=== PATIENT | female | born 1985 | race Two or more races ===

== ENCOUNTER 2019-09-29 08:45 | Emergency (ER) | payer OTHER ==
[2019-09-29 08:52] VITALS: TEMP 98.3
[2019-09-29] MEDS ORDERED: SODIUM CHLORIDE 0.9% 1,000 ML IV STA (09:10)
[2019-09-29 09:27] LABS: Basophils % (A) 0 %; Eosinophils # (A) 0.1 k/uL (0-0.7); Eosinophils % (A) 3 %; HCT 34.9 % (34.0-46.0); HGB 12.1 gm/dL (11.4-16.0); Lymphocytes # (A) 1.1 k/uL (1.0-4.8); Lymphocytes % (A) 27 %; MCH 31.8 pg (25.0-35.0); MCHC 34.6 g/dL (31.0-37.0); MCV 91.9 fL (80.0-100.0); Mean Platelet Volume 9.5; Monocytes # (A) 0.2 k/uL (0-1.0); Monocytes % (A) 5 %; Neutrophils # (A) 2.7 k/uL (1.3-7.7); Neutrophils % (A) 64 %; Platelet Count 157 k/uL (150-450); RDW 14.4 % (11.5-15.5); WBC 4.2 k/uL (3.8-10.6)
--- NOTE | 2019-09-29 09:29 | ED ---
Abdominal Pain HPI - General Chief Complaint: Abdominal Pain Stated Complaint: Abd pain-16wks PG Time Seen by Provider: 09/29/19 09:04 Source: patient, RN notes reviewed Mode of arrival: ambulatory Limitations: no limitations - History of Present Illness Initial Comments: 34-year-old female presents emergency Department with chief complaint right- sided right flank pain last 3 weeks. Patient is 16 weeks . States that the pain seems to wax and wane she doesn't that she's been constipated denies any dysuria hematuria patient is A1. Patient has no vaginal bleeding or vaginal discharge. - Related Data Home Medications Medication Instructions Recorded Confirmed Ondansetron Odt [Zofran Odt] 4 mg PO Q8HR PRN 09/29/19 09/29/19 Previous Rx's Medication Instructions Recorded Docusate [Colace] 100 mg PO DAILY #10 capsule 09/29/19 Allergies Allergy/AdvReac Type Severity Reaction Status Date / Time No Known Allergies Allergy Verified 09/29/19 10:15 Review of Systems ROS Statement: Those systems with pertinent positive or pertinent negative responses have been documented in the HPI. ROS Other: All systems not noted in ROS Statement are negative. Past Medical History Past Medical History: No Reported History History of Any Multi-Drug Resistant Organisms: None Reported Past Surgical History: No Surgical Hx Reported Past Psychological History: No Psychological Hx Reported Smoking Status: Never smoker Past Alcohol Use History: None Reported Past Drug Use History: None Reported General Exam Limitations: no limitations General appearance: alert, in no apparent distress Head exam: Present: atraumatic, normocephalic, normal inspection Eye exam: Present: normal appearance, PERRL, EOMI. Absent: scleral icterus, conjunctival injection, periorbital swelling Respiratory exam: Present: normal lung sounds bilaterally. Absent: respiratory distress, wheezes, rales, rhonchi, stridor Cardiovascular Exam: Present: regular rate, normal rhythm, normal heart sounds. Absent: systolic murmur, diastolic murmur, rubs, gallop, clicks GI/Abdominal exam: Present: soft, tenderness (Mild right-sided), normal bowel sounds. Absent: distended, guarding, rebound, rigid Back exam: Absent: CVA tenderness (R), CVA tenderness (L) Neurological exam: Present: alert Skin exam: Present: warm, dry, intact, normal color. Absent: rash Course Vital Signs 09/29/19 08:49 Temperature 98.3 F Pulse Rate 103 H Respiratory 19 Rate Blood Pressure 106/66 O2 Sat by Pulse 99 Oximetry Medical Decision Making - Medical Decision Making 34-year-old female presented for right-sided abdominal pain. Labs unremarkable urinalysis unremarkable. THE GALLBLADDER DID NOT REVEAL ANY ACUTE FINDING. PATIENT'S PAIN MAY RELATED TO HER CONSTIPATION. PATIENT STATES TAKES CHRONIC ZOFRAN WHICH MAKES HER MORE CONSTIPATED. PATIENT COLACE FOR HER CONSTIPATION ADVISED TO INCREASE HER FLUID INTAKE, FIBER INTAKE. - Lab Data Result diagrams: 09/29/19 09:13 09/29/19 09:13 Lab Results 09/29/19 09/29/19 09/29/19 Range/Units 09:13 09:13 09:13 WBC 4.2 (3.8-10.6) k/uL RBC 3.80 (3.80-5.40) m/uL Hgb 12.1 (11.4-16.0) gm/dL Hct 34.9 (34.0-46.0) % MCV 91.9 (80.0-100.0) fL MCH 31.8 (25.0-35.0) pg MCHC 34.6 (31.0-37.0) g/dL RDW 14.4 (11.5-15.5) % Plt Count 157 (150-450) k/uL Neutrophils % 64 % Lymphocytes % 27 % Monocytes % 5 % Eosinophils % 3 % Basophils % 0 % Neutrophils # 2.7 (1.3-7.7) k/uL Lymphocytes # 1.1 (1.0-4.8) k/uL Monocytes # 0.2 (0-1.0) k/uL Eosinophils # 0.1 (0-0.7) k/uL Basophils # 0.0 (0-0.2) k/uL Sodium 138 (137-145) mmol/L Potassium 3.8 (3.5-5.1) mmol/L Chloride 111 H (98-107) mmol/L Carbon Dioxide 19 L (22-30) mmol/L Anion Gap 8 mmol/L BUN 8 (7-17) mg/dL Creatinine 0.35 L (0.52-1.04) mg/dL Est GFR (CKD-EPI)AfAm >90 (>60 ml/min/1.73 sqM) Est GFR (CKD-EPI)NonAf >90 (>60 ml/min/1.73 sqM) Glucose 110 H (74-99) mg/dL Calcium 8.7 (8.4-10.2) mg/dL Total Bilirubin 0.4 (0.2-1.3) mg/dL AST 18 (14-36) U/L ALT 8 (4-34) U/L Alkaline Phosphatase 42 (38-126) U/L Total Protein 6.4 (6.3-8.2) g/dL Albumin 3.5 (3.5-5.0) g/dL Amylase 44 (30-110) U/L Lipase 70 (23-300) U/L Urine Color Yellow Urine Appearance Clear (Clear) Urine pH 6.0 (5.0-8.0) Ur Specific [place] 1.023 (1.001-1.035) Urine Protein Negative (Negative) Urine Glucose (UA) Negative (Negative) Urine Ketones Negative (Negative) Urine Blood Trace H (Negative) Urine Nitrite Negative (Negative) Urine Bilirubin Negative (Negative) Urine Urobilinogen <2.0 (<2.0) mg/dL Ur Leukocyte Esterase Negative (Negative) Urine RBC 2 (0-5) /hpf Urine WBC 1 (0-5) /hpf Ur Squamous Epith Cells 7 H (0-4) /hpf Urine Mucus Moderate H (None) /hpf Disposition Clinical Impression: Abdominal pain, Constipation Disposition: HOME SELF-CARE Condition: Stable Instructions (If sedation given, give patient instructions): Abdominal Pain in (ED) Additional Instructions: Please return to the Emergency Department if symptoms worsen or any other concerns. Prescriptions: Docusate [Colace] 100 mg PO DAILY #10 capsule Is patient prescribed a controlled substance at d/c from ED?: No Referrals: Pinky Grimm MD [Primary Care Provider] - 1-2 days Time of Disposition: 10:48
[2019-09-29 09:42] LABS: ALT 8 U/L (4-34); AST 18 U/L (14-36); African American GFR (CKD) >90 (>60 ml/min/1.73 sqM); Albumin 3.5 g/dL (3.5-5.0); Alkaline Phosphatase 42 U/L (38-126); Amylase 44 U/L (30-110); Anion Gap 8 mmol/L; Blood Urea Nitrogen 8 mg/dL (7-17); Calcium 8.7 mg/dL (8.4-10.2); Carbon Dioxide 19 mmol/L (22-30); Chloride 111 mmol/L (98-107); Glucose 110 mg/dL (74-99); Non-African American GFR(CKD) >90 (>60 ml/min/1.73 sqM); Potassium 3.8 mmol/L (3.5-5.1); Sodium 138 mmol/L (137-145); Total Bilirubin 0.4 mg/dL (0.2-1.3); Total Protein 6.4 g/dL (6.3-8.2)
[2019-09-29 10:16] LABS: Appearance,Urine Clear (Clear); Bilirubin,Urine Negative (Negative); Blood,Urine Trace (Negative); Color,Urine Yellow; Glucose,Urine (UA) Negative (Negative); Ketones,Urine Negative (Negative); Leukocyte Esterase,Urine Negative (Negative); Mucus,Urine Moderate /hpf; Nitrite,Urine Negative (Negative); Protein,Urine Negative (Negative); RBC,Urine 2 /hpf (0-5); Specific Gravity,Urine 1.023 (1.001-1.035); Squamous Epithelial Cell,Urine 7 /hpf (0-4); Urobilinogen,Urine <2.0 mg/dL (<2.0); WBC,Urine 1 /hpf (0-5)
--- NOTE | 2019-09-29 10:29 | US ---
EXAMINATION TYPE: US abdomen limited DATE OF EXAM: 09/29/2019 COMPARISON: NONE CLINICAL HISTORY: RUQ pain. Pain EXAM MEASUREMENTS: Liver Length: 15 cm Gallbladder Wall: .2 cm CBD: .3 cm Right Kidney: 12.0 x 3.7 x 4.8 cm Pancreas: Obscured by bowel gas Liver: wnl Gallbladder: wnl Evidence for sonographic Porras's sign: no CBD: wnl Right Kidney: wnl Pancreas suboptimally seen on images saved due to overlying bowel gas per technologist. Visualized li nava is within normal limits. Visualized right kidney shows no gross hydronephrosis. Gallbladder is se en without shadowing mobile gallstones. IMPRESSION: No gallstones or ultrasound evidence for acute cholecystitis.
[2019-09-29 11:17] VITALS: BP 125/81; PULSE 76; RESP 16
== END 2019-09-29 11:16 | disposition home or self-care (01) ==
LOC: SUPCPDRO 08:45 → EC 08:45
DX: O99.612 Diseases of the digestive system complicating pregnancy, second trimester (principal); K59.00 Constipation, unspecified; Z3A.16 16 weeks gestation of pregnancy
CPT/HCPCS: 36415; 76705; 80053; 81001; 82150; 83690; 85025; 99284

== ENCOUNTER 2020-02-21 06:12 | Inpatient (IN) | payer OTHER ==
[2020-02-21] MEDS ORDERED: OXYTOCIN 10 UNIT/ML 1 ML VIAL IM PRN (06:27)
[2020-02-21] MEDS ORDERED: METHYLERGONOVINE 0.2 MG/ML 1 ML AMP IM PRN (06:27)
[2020-02-21] MEDS ORDERED: TERBUTALINE 1 MG/ML VIAL SQ PRN (06:27)
[2020-02-21] MEDS ORDERED: CARBOPROST TROMETHAMINE 250 MCG/ML 1 ML AMP IM PRN (06:27)
[2020-02-21] MEDS ORDERED: LIDOCAINE 0.5% (PF) 5 MG/ML (50 ML SDV) SQ PRN (06:27)
[2020-02-21] MEDS ORDERED: OXYTOCIN 30 UNITS/500 ML NS 30 UNIT in SALINE 1 500ML.BAG IV SCH (06:30)
[2020-02-21] MEDS ORDERED: PENICILLIN G POTASSIUM 5,000,000 UNIT in DEXTROSE 5% IN WATER 100 ML IVPB STA ×2 (06:35)
[2020-02-21 06:52] LABS: Basophils % (A) 1 %; Eosinophils # (A) 0.1 k/uL (0-0.7); Eosinophils % (A) 3 %; HCT 33.1 % (34.0-46.0); HGB 11.1 gm/dL (11.4-16.0); Hypochromasia Slight; Lymphocytes # (A) 1.3 k/uL (1.0-4.8); Lymphocytes % (A) 32 %; MCH 29.2 pg (25.0-35.0); MCHC 33.6 g/dL (31.0-37.0); MCV 87.1 fL (80.0-100.0); Mean Platelet Volume 9.2; Monocytes # (A) 0.2 k/uL (0-1.0); Monocytes % (A) 6 %; Neutrophils # (A) 2.3 k/uL (1.3-7.7); Neutrophils % (A) 58 %; Platelet Count 154 k/uL (150-450); Poikilocytosis Slight; RDW 14.5 % (11.5-15.5); WBC 4.1 k/uL (3.8-10.6)
[2020-02-21] MEDS: LACTATED RINGERS 1,000 ML IV SCH ×4 (06:58→23:27)
[2020-02-21] MEDS ORDERED: CITRIC ACID-SODIUM CITRATE 15 ML CUP PO ONE (09:26)
[2020-02-21] MEDS ORDERED: DEXAMETHASONE SOD PHOSPHATE 10 MG/ML 1 ML VIAL ONE (10:50)
[2020-02-21] MEDS ORDERED: MORPHINE SULFATE (PF) 0.3 MG/0.3 ML SYR ONE (10:50)
[2020-02-21] MEDS ORDERED: ONDANSETRON 4 MG/2 ML VIAL ONE (10:50)
[2020-02-21] MEDS ORDERED: OXYTOCIN 10 UNIT/ML 1 ML VIAL ONE (10:50)
[2020-02-21] MEDS ORDERED: KETOROLAC 30 MG/ML 1 ML VIAL ONE (10:50)
[2020-02-21] MEDS ORDERED: PHENYLEPHRINE-0.9% NACL SYG 1 MG/10 ML SYRINGE ONE (10:50)
--- NOTE | 2020-02-21 10:59 | P.HPOB ---
History of Present Illness H&P Date: 02/21/20 Chief Complaint: Here for elective induction of labor with favorable multiparous cervix This is a 34-year-old female 4 para 3003 EDC 02/27/2020 at 39 and one sevenths weeks' gestation. Patient presented this morning for induction of labor with favorable term multiparous cervix. Fetus is been active throughout the . She denied vaginal bleeding or fluid leakage. Upon evaluation at the bedside infant was noted to be breech upon artificial rupture of mem branes, clear fluid. Decision is made to proceed with primary low transverse section. Past medical history is significant for hyperemesis in the first trimester, irritable bowel syndrome. Past surgical history is negative. Current medications Zofran 4 mg as needed, metoclopramide 10 mg once daily, vitamin daily. ALLERGIES none known. Family history is noncontributory. Obstetric history normal spontaneous vaginal deliveries 3, all full-term healthy infants. history is significant for positive group B strep cultures. Blood type is O+, rubella status immune. VDRL testing, urine culture, hepatitis B surface antigen, HIV testing, gonorrhea and chlamydia cultures all negative. One-hour Glucola 121. On exam this is a pleasant female who speaks very little Cam[place], her is at the bedside and is an excellent line construction supervisor. Blood pressure on admission 1 20/61, pulse 82, respirations 16. She is 5 foot 1 inch, 120 pounds. The general physical exam is within normal limits. The chest is clear in all haas. The extremities reveal no edema. heart rate is consistent with reactive NST. Cervix is 3 cm dilated, anterior, 70-80% effaced. On examination breech presentation is noted after artificial amniorrhexis with clear fluid. Impression: 39 and one sevenths weeks intrauterine , here for induction, found to have breech presentation. Plan: An [facility]na hospice is present remotely for full interpretation of risks and benefits. Patient has elected to proceed with primary low transverse section. She is declining option for tubal ligation. We've discussed the risk of bleeding, infection, perforation or damage to other organs especially the bladder. The option of vaginal is also reviewed along with risks and benefits. All questions answered. Review of Systems Constitutional: Reports as per HPI Past Medical History Past Medical History: No Reported History Additional Past Medical History / Comment(s): IBS History of Any Multi-Drug Resistant Organisms: None Reported Past Surgical History: No Surgical Hx Reported Past Psychological History: No Psychological Hx Reported Smoking Status: Never smoker Past Alcohol Use History: None Reported Past Drug Use History: None Reported - Past Family History Father History Unknown: Yes Medications and Allergies Home Medications Medication Instructions Recorded Confirmed Type No Known Home Medications 02/21/20 02/21/20 History Allergies Allergy/AdvReac Type Severity Reaction Status Date / Time No Known Allergies Allergy Verified 09/29/19 10:15 Exam Vital Signs Temp Pulse Resp BP Pulse Ox 02/21/20 06:26 97 F L 82 16 120/61 99 Intake and Output 02/20/20 02/21/20 02/21/20 22:59 06:59 14:59 Other: Weight 54.431 kg See dictation under HPI Results Result Diagrams: 02/21/20 06:30 Abnormal Lab Results - Last 24 Hours (Table) 02/21/20 Range/Units 06:30 Hgb 11.1 L (11.4-16.0) gm/dL Hct 33.1 L (34.0-46.0) % Assessment and Plan Assessment: 39 and one sevenths weeks intrauterine , breech presentation. Plan: We will proceed with primary low transverse section, tubal ligation offered and declined. All risks and benefits thoroughly reviewed. It is my strong impression that the patient is very well aware of our discussion with the aid of cna hospice and her at the bedside. Time with Patient: Greater than 30
[2020-02-21] MEDS ORDERED: ZOLPIDEM 5 MG TAB PO PRN (11:35)
[2020-02-21] MEDS ORDERED: NALOXONE 0.4 MG/ML 1 ML VIAL IV PRN (11:35)
[2020-02-21] MEDS ORDERED: KETOROLAC 30 MG/ML 1 ML VIAL IVP PRN (11:35)
[2020-02-21] MEDS ORDERED: diphenhydrAMINE 25 MG CAP PO PRN (11:35)
[2020-02-21] MEDS ORDERED: diphenhydrAMINE 50 MG CAP PO PRN (11:35)
[2020-02-21] MEDS ORDERED: diphenhydrAMINE 50 MG/ML 1 ML VIAL IVP PRN (11:35)
[2020-02-21] MEDS ORDERED: METOCLOPRAMIDE 5 MG/ML 2 ML VIAL IVP PRN (11:35)
[2020-02-21] MEDS ORDERED: ACETAMINOPHEN TAB 325 MG TAB PO PRN (11:35)
[2020-02-21] MEDS ORDERED: SIMETHICONE 80 MG CHEWABLE PO PRN (11:35)
[2020-02-21] MEDS ORDERED: ONDANSETRON 4 MG/2 ML VIAL IVP PRN (11:35)
--- NOTE | 2020-02-21 11:35 | P.OP ---
Date of Procedure: 02/21/20 Preoperative Diagnosis: 39 and one sevenths weeks intrauterine , breech presentation. Postoperative Diagnosis: Same, double footling breech, liveborn female , normal-appearing tubes and ovaries. Procedure(s) Performed: Primary low transverse section Anesthesia: spinal Surgeon: Clementina Bee Ehs Engineer #1: Epi Muniz Estimated Blood Loss (ml): 250 IV fluids (ml): 700 Urine output (ml): 100 Pathology: none sent Condition: stable Disposition: PACU Description of Procedure: Breech presentation is noted the bedside. After thorough consultation along with a director of accounting, decision is made to proceed with primary low transverse section. All risks and benefits reviewed. Penicillin G is given 1 group B strep treatment, 2 g of Ancef are given as well. Patient is brought back to the operating suite where a spinal with Duramorph is administered without difficulty per Dr. Stewart. She's placed in the dorsal supine position with left lateral uterine displacement. The appropriate timeout is performed to assure proper patient and procedural identification. Patient is declining option for tubal ligation. The analgesia is checked and noted to be adequate. The abdomen is prepped and draped in usual sterile fashion. A low transverse skin incision is made in this is carried down to the subcutaneous tissue which is only approximately 1 cm deep. Fascia is isolated, scored, extended bilaterally with curved Brunner scissors. Peritoneum is next identified and incised, there is no bowel or bladder involvement. Bladder blade is placed over the bladder and the bladder is at all times kept well from the operative field to avoid bladder and/or ureteral injury. A low transverse uterine incision is made in this is carried down into the myometrium and extended bilaterally in a transverse fashion. The infant is delivered double footling. The sacrum is turned anterior. A blue towel was wrapped around the corpus. The upper extremities are removed with a Pinard maneuver, with 180 over rotation for second shoulder. The head is delivered in a flexed fashion. Patient is officially delivered of a liveborn female infant at 09/15/2007 hours. Umbilical cord is doubly clamped and ligated, she is handed to waiting nurses for evaluation where scores of 9 and 9 at one and 5 minutes respectively are given. Cord blood is sent to the lab for evaluation for Rh+ status. Placenta is delivered manually, it is inspected and noted to be intact with trivascular cord at 09/15/2008 hours. Uterus is then massaged and brought onto the operative field. It is swept clean with a sterile sponge to avoid any retained products of conception. The uterus is closed in a two-step fashion, first layer running locking, second layer imbricated for excellent reapproximation. Bilateral tubes and ovaries are inspected and noted to be normal. The abdomen is suctioned with suction on guard posterior to the uterus, and then the uterus is gently placed back into the abdominal cavity. Bilateral gutters are inspected and cleaned. The uterine incision is clean and dry and well approximated. The peritoneum was allowed close by secondary intention. The fascia is closed in a running stitch of 0 Vicryl with over ligation in the midline. Subcutaneous tissue is irrigated, noted to be hemostatically intact. The skin is closed in a running subcuticular stitch of 4-0 undyed Monocryl. Steri-Strips and Mastisol are applied to the wound. Fregoso is noted to be draining clear urine. All sponge needle and enhancement counts are correct at the end of the procedure. Dressing is applied to the wound along with an abdominal binder. Patient is allowed to begin the bonding experience in the LDR with her and daughter. Total estimated blood loss 250 mL, fluid replacement 700 mL's.
[2020-02-21] MEDS: diphenhydrAMINE 50 MG/ML 1 ML VIAL IVP PRN ×2 (13:56→18:16)
[2020-02-21] MEDS: PENICILLIN G POTASSIUM 2,500,000 UNIT in DEXTROSE 5% IN WATER 100 ML IVPB SCH ×4 (19:44→19:45)
[2020-02-21] MEDS: SENNOSIDES-DOCUSATE SODIUM 1 EACH TAB PO SCH (20:48)
[2020-02-22 05:56] LABS: Basophils % (A) 0 %; Eosinophils % (A) 1 %; HCT 32.7 % (34.0-46.0); HGB 10.5 gm/dL (11.4-16.0); Hypochromasia Slight; Lymphocytes # (A) 1.8 k/uL (1.0-4.8); Lymphocytes % (A) 22 %; MCH 28.1 pg (25.0-35.0); MCHC 32.3 g/dL (31.0-37.0); MCV 87.2 fL (80.0-100.0); Mean Platelet Volume 9.9; Monocytes # (A) 0.6 k/uL (0-1.0); Monocytes % (A) 7 %; Neutrophils # (A) 5.6 k/uL (1.3-7.7); Neutrophils % (A) 69 %; Platelet Count 165 k/uL (150-450); Poikilocytosis Slight; RBC 3.75 m/uL (3.80-5.40); RDW 14.7 % (11.5-15.5); WBC 8.2 k/uL (3.8-10.6)
--- NOTE | 2020-02-22 07:07 | P.PN ---
Subjective Progress Note Date: 02/22/20 Slept well. Positive flatus. No complaints. Objective - Vital Signs Vital signs: Vital Signs Temp 98.1 F 02/22/20 04:00 Pulse 68 02/22/20 04:00 Resp 18 02/22/20 04:00 BP 115/70 02/22/20 04:00 Pulse Ox 99 02/22/20 04:00 Intake & Output 02/21/20 02/22/20 02/22/20 18:59 06:59 18:59 Output Total 400 300 Balance -400 -300 Output: Urine 250 300 Uretheral (Fregoso) 300 Emesis 150 Other: Voiding Method Indwelling Catheter # Voids 2 - Constitutional General appearance: Present: average body habitus, cooperative - EENT Eyes: Present: PERRLA ENT: Present: hearing grossly normal - Respiratory Respiratory: bilateral: CTA - Cardiovascular Rhythm: regular - Gastrointestinal General gastrointestinal: Present: normal bowel sounds - Genitourinary Genitourinary Comment(s): Incision clean and dry, intact, Steri-Strips applied. Fundus firm, midline, symmetric, 18 week size. - Neurologic Neurologic: Present: CNII-XII intact - Musculoskeletal Musculoskeletal: Present: gait normal, strength equal bilaterally - Psychiatric Psychiatric: Present: A&O x's 3, intact judgment & insight - Labs CBC & Chem 7: 02/22/20 05:27 Labs: Abnormal Lab Results - Last 24 Hours (Table) 02/22/20 Range/Units 05:27 RBC 3.75 L (3.80-5.40) m/uL Hgb 10.5 L (11.4-16.0) gm/dL Hct 32.7 L (34.0-46.0) % Assessment and Plan Assessment: Doing well day #1 Plan: Advance diet and activity. Continue postoperative care. Likely discharge home tomorrow. Time with Patient: Less than 30
[2020-02-22] MEDS: SENNOSIDES-DOCUSATE SODIUM 1 EACH TAB PO SCH ×2 (07:30→19:16)
[2020-02-22] MEDS: IBUPROFEN 600 MG TAB PO PRN ×3 (07:31→20:19)
[2020-02-22] MEDS: HYDROcodone/APAP 5-325MG 1 EACH TAB PO PRN ×2 (10:14→16:53)
--- NOTE | 2020-02-22 13:29 | P.PN ---
Progress Note - Text 02/21 640am 34-year-old female status post with spinal Duramorph. Patient seen and evaluated for postop pain control with a VAS of 2, no planes of nausea vomiting or pruritus. Patient doing well.
[2020-02-23] MEDS: HYDROcodone/APAP 5-325MG 1 EACH TAB PO PRN (04:55)
--- NOTE | 2020-02-23 08:00 | P.DS ---
Providers Date of admission: 02/21/20 06:12 Expected date of discharge: 02/23/20 Attending physician: Clementina Bee Primary care physician: Stated None Hospital Course: This is a 34-year-old female 4 para 3003 EDC 02/27/2020 at 39 and one sevenths weeks' gestation. Patient presented for induction with favorable multiparous cervix. On admission however, she was noted to have a breech baby. Thorough consultation was performed, decision was made to proceed with primary low transverse section. was otherwise unremarkable, group B strep cultures positive, rubella status immune, blood type O positive. Please see my dictated history and physical for details. She went on to deliver via primary low transverse section a double footling breech female infant, with scores of 9 and 9 at one and 5 minutes respectively. weight 8 lbs. 1 oz. or 3670 g. She did well intraoperatively, with an estimated blood loss of 250 mL's. Please see my dictated operative note for details. Postoperatively the patient has done very well. This morning she is voiding, ambulating, passing flatus without difficulty. Vital signs are stable and she is afebrile. Incision is clean and dry, intact, with Steri-Strips applied. Breasts are not engorged. Breast-feeding is going well. [place] is doing well. Pain is well managed with Motrin. Patient is judged to be in good condition for discharge home. She will follow-up with me in the office in 2 weeks. I have reminded her no intercourse, tampons or douching. She will use [id number] Advil or Aleve, or Motrin as needed for pain. I've asked her to call with any fevers shakes or chills, foul smelling or copious lochia, with any pain not alleviated by [id number] products, with the passage of large blood clots, with any diffi culties with breast-feeding, or indeed with any concerns. Patient's will follow-up with senior payroll manager as per recommendations. Assessment: Doing well day number to Patient Condition at Discharge: Good Plan - Discharge Summary Discharge Rx Participant: No New Discharge Prescriptions: No Action No Known Home Medications Discharge Medication List No Known Home Medications 02/21/20 [History] Follow up Appointment(s)/Referral(s): Clementina Bee MD [STAFF PHYSICIAN] - 2 Weeks Discharge Disposition: HOME SELF-CARE
[2020-02-23] MEDS: IBUPROFEN 600 MG TAB PO PRN (08:09)
[2020-02-23] MEDS: SENNOSIDES-DOCUSATE SODIUM 1 EACH TAB PO SCH (08:09)
[2020-02-23 10:10] VITALS: BP 107/66; PULSE 70; RESP 16; TEMP 98.6
== END 2020-02-23 10:40 | disposition home or self-care (01) | DRG 788 ==
LOC: 4FBP 06:12
PROVIDERS: ADMIT Obstetrics & Gynecology; ATTEND Obstetrics & Gynecology
PROC: 10D00Z1 Extraction of Products of Conception, Low, Open Approach (ICD-10-PCS; principal; 2020-02-21 11:00)
DX: O32.8XX0 Maternal care for other malpresentation of fetus, not applicable or unspecified (principal); O99.62 Diseases of the digestive system complicating childbirth; K58.9 Irritable bowel syndrome, unspecified; Z37.0 Single live birth; Z3A.39 39 weeks gestation of pregnancy
CPT/HCPCS: 85025; 86850; 86900; 86901

== ENCOUNTER → 2021-02-21 | Outpatient (CLI) | payer OTHER ==
--- NOTE | 2021-02-21 15:59 | XR ---
EXAMINATION TYPE: XR foot complete RT DATE OF EXAM: 02/21/2021 CLINICAL HISTORY: Pain for one week. Swelling and trauma. TECHNIQUE: Frontal, lateral, and oblique images of the right foot are obtained. COMPARISON: None FINDINGS: There are 2 suspicious oblique lucent lines on oblique image fourth proximal phalanx with slight cortical disruption. Lateral view there is osseous overlap making evaluation suboptimal. Findi ng less well-seen on frontal view but is suspicious. Marked flexion in the toes distal to this makes evaluation suboptimal at this level. Joint spaces are preserved. Mild soft tissue swelling fourth toe felt present. IMPRESSION: There is probable acute nondisplaced spiral type fracture through the fourth proximal ph alanx mid to distal diaphysis level. Correlate clinically with point tenderness.
== END | disposition home or self-care (01) ==
LOC: RADXRMAIN 15:21
PROVIDERS: ATTEND Internal Medicine
DX: M79.671 Pain in right foot (principal); S99.921A Unspecified injury of right foot, initial encounter

== ENCOUNTER → 2022-07-23 | Outpatient (CLI) | payer OTHER ==
--- NOTE | 2022-07-23 12:01 | XR ---
EXAMINATION TYPE: XR cervical spine comp DATE OF EXAM: 07/23/2022 COMPARISON: None HISTORY: Lower neck pain left shoulder TECHNIQUE: 5 view cervical spine FINDINGS: Odontoid is nondiagnostic. Submental vertex view is somewhat limited. Prevertebral space is normal. Disc heights are preserved. Vertebral body heights are preserved. Poste rior spinal lamellar line is intact. Foramen are widely patent. IMPRESSION: 1. Limited odontoid. 2. Cervical spine otherwise appears unremarkable.
--- NOTE | 2022-07-23 12:06 | XR ---
EXAMINATION TYPE: XR thoracic spine 2V DATE OF EXAM: 07/23/2022 COMPARISON: None HISTORY: Upper left back pain TECHNIQUE: 3 views thoracic spine FINDINGS: There are 12 thoracic type vertebral bodies. Pedicles are intact. Disc heights are preserve d. Vertebral body heights are preserved. IMPRESSION: 1. Normal 3 view thoracic spine.
== END | disposition home or self-care (01) ==
LOC: RADXRMAIN 11:18
PROVIDERS: ATTEND Family Medicine
DX: M54.2 Cervicalgia (principal); M54.9 Dorsalgia, unspecified
CPT/HCPCS: 72050; 72070

== ENCOUNTER → 2022-09-02 | Outpatient (CLI) | payer OTHER ==
--- NOTE | 2022-09-02 08:28 | US ---
EXAMINATION TYPE: US abdomen complete DATE OF EXAM: 09/02/2022 COMPARISON: Ultrasound abdomen Limited September 29, 2019 CLINICAL HISTORY: R10.13 EPI PAIN, K59.09 CONSTIPATION. Left side pain and pelvic. TECHNIQUE: Multiple sonographic images of the abdomen are obtained. FINDINGS: EXAM MEASUREMENTS: Liver Length: 16.5 cm Gallbladder Wall: 0.1 cm CBD: 0.2 cm Spleen: 11.4 cm Right Kidney: 12.4 x 4.0 x 3.9 cm Left Kidney: 12.5 x 4.7 x 4.4 cm Pancreas: wnl Liver: wnl Gallbladder: wnl Evidence for sonographic Porras's sign: neg CBD: wnl Spleen: wnl Right Kidney: No hydronephrosis or masses seen Left Kidney: No hydronephrosis or masses seen Upper IVC: wnl Abd Aorta: No AAA visualized at time of scan The liver is homogenous. The intrahepatic portion of the IVC and visualized abdominal aorta are with in normal limits. There is no evidence of shadowing mobile cholelithiasis. Common bile duct is unre markable. The visualized portions of the pancreas are homogenous. The spleen is unremarkable. Kidn eys are symmetric and free of hydronephrosis. No renal lesions are seen. IMPRESSION: Unremarkable study.
--- NOTE | 2022-09-02 08:29 | US ---
EXAMINATION TYPE: US pelvic complete DATE OF EXAM: 09/02/2022 COMPARISON: NONE CLINICAL HISTORY: R10.13 EPI PAIN, K59.09 CONSTIPATION. Left side pain and pelvic pain. IUD x 2020- n o issues TECHNIQUE: Transabdominal (TA). Transabdominal sonographic images of the pelvis were acquired. Date of LMP: 08/16/2022, EXAM MEASUREMENTS: Uterus: 9.1 x 6.2 x 4.4 cm Endometrial Stripe: 0.4 cm Right Ovary: 4.3 x 2.1x 2.1 cm Left Ovary: 3.4 x 2.4 x 1.6 cm 1. Uterus: Anteverted Heterogenous in appearance. 2. Endometrium: IUD visualized within endometrial canal 3. Right Ovary: follicles seen 4. Left Ovary: follicles seen 5. Bilateral Adnexa: wnl 6. Posterior cul-de-sac: no free fluid Heterogeneous anteverted uterus with central metallic IUD in the endometrial canal. No free fluid in the pelvis. Ovaries are symmetric and within normal limits in size with scattered peripheral follicles. No suspic ious adnexal masses. IMPRESSION: No acute findings are evident. No suspicious left adnexal mass noted.
== END | disposition home or self-care (01) ==
LOC: RADUSWWP 07:36
PROVIDERS: ATTEND Family Medicine
DX: R10.13 Epigastric pain (principal); K59.09 Other constipation
CPT/HCPCS: 76700; 76856

== ENCOUNTER 2023-03-12 12:51 | Emergency (ER) | payer OTHER ==
[2023-03-12] MEDS ORDERED: SODIUM CHLORIDE 0.9% 2,000 ML IV STA (13:44)
[2023-03-12] MEDS ORDERED: PYRIDOXINE 100 MG/ML 1 ML VIAL IVP STA (13:45)
[2023-03-12] MEDS ORDERED: METOCLOPRAMIDE 5 MG/ML 2 ML VIAL IVP STA (13:51)
[2023-03-12 14:08] LABS: Basophils % (A) 0 %; Eosinophils # (A) 0.1 k/uL (0-0.7); Eosinophils % (A) 1 %; HCT 38.7 % (34.0-46.0); HGB 13.4 gm/dL (11.4-16.0); Lymphocytes % (A) 22 %; MCH 29.9 pg (25.0-35.0); MCHC 34.6 g/dL (31.0-37.0); MCV 86.4 fL (80.0-100.0); Mean Platelet Volume 9.5; Monocytes # (A) 0.4 k/uL (0-1.0); Monocytes % (A) 8 %; Neutrophils # (A) 2.9 k/uL (1.3-7.7); Neutrophils % (A) 67 %; Platelet Count 194 k/uL (150-450); RBC 4.48 m/uL (3.80-5.40); RDW 14.6 % (11.5-15.5); WBC 4.4 k/uL (3.8-10.6)
[2023-03-12 14:26] LABS: ALT 16 U/L (4-34); AST 23 U/L (14-36); African American GFR (CKD) >90 (>60 ml/min/1.73 sqM); Albumin 4.4 g/dL (3.5-5.0); Alkaline Phosphatase 66 U/L (38-126); Amylase 65 U/L (30-110); Anion Gap 11 mmol/L; Blood Urea Nitrogen 5 mg/dL (7-17); Calcium 9.4 mg/dL (8.4-10.2); Carbon Dioxide 22 mmol/L (22-30); Chloride 104 mmol/L (98-107); Glucose 89 mg/dL (74-99); Lipase 72 U/L (23-300); Non-African American GFR(CKD) >90 (>60 ml/min/1.73 sqM); Potassium 3.8 mmol/L (3.5-5.1); Sodium 137 mmol/L (137-145); Total Bilirubin 0.5 mg/dL (0.2-1.3); Total Protein 7.5 g/dL (6.3-8.2)
[2023-03-12 15:13] VITALS: TEMP 98
--- NOTE | 2023-03-12 15:28 | US ---
EXAMINATION TYPE: Transabdominal DATE OF EXAM: 03/12/2023 3:05 PM COMPARISON: NONE CLINICAL INDICATION: Female, 37 years old with history of pain; Generalized pelvic pain. EXAM PERFORMED: Transabdominal (TA) EXAM MEASUREMENTS: GESTATIONAL AGE / DATING Physician Established: Not yet established Dates by LMP: (14 weeks/0 days) EDC: 09/10/2023 Dates by First Scan: No previous this is first scan Dates by Current Scan for: (13 weeks/6 days) EDC: 09/11/2023 MATERNAL ANATOMY Uterus: 16.0 x 12.2 x 5.8 cm Right Ovary: 3.3 x 2.6 x 2.0 cm Left Ovary: 3.0 x 2.0 x 1.3 cm Post CDS / Adnexa: no free fluid Presence of free fluid: no Presence of corpus luteal cyst: right ovary = 1.6 x 1.8 x 1.7 cm Presence of subchorionic bleed: MARGOT = 2.1 x 2.5 x 1.4 cm GESTATION / SURVEY CRL: 7.9 cm (13 weeks/6 days) MSD: seen, not measured Yolk Sac (normal less than 6mm): not visualized Heart Rate: 166 bpm Rhythm: Normal IUP: Viable IUP Age Appropriate Anatomy Limbs: Visualized Calvarium: Visualized Date of LMP: 12/04/2022, Beta HcG (if available): Not available at this time IMPRESSION: Single live intrauterine gestation with ultrasound age of 13 weeks 6 days. Small subchori onic hemorrhage.
--- NOTE | 2023-03-12 16:17 | ED ---
General Adult HPI - General Chief complaint: Nausea/Vomiting/Diarrhea Stated complaint: n/v/d Time Seen by Provider: 03/12/23 13:37 Source: patient, RN notes reviewed Mode of arrival: ambulatory Limitations: language barrier - History of Present Illness Initial comments: 37-year-old female presents emergency Department with chief complaint of nausea and vomiting along with sinus congestion, sore throat, cough, right ear pain 2 days. She states that she had some improvement in her nausea and vomiting but has been worsening again earlier this week. She has been using Zofran at home which has not been helping. States she is about 3 months . Reports some lower abdominal cramping. Denies vaginal bleeding or discharge. Denies fever, chills. - Related Data Home Medications Medication Instructions Recorded Confirmed Acetaminophen Tab [Tylenol Tab] 500 mg PO Q6H PRN 11/21/22 11/21/22 Ergocalciferol [Vitamin D2 (1250 1,250 mcg PO FR 11/21/22 11/21/22 Mcg = 55242 Iu)] Famotidine [Pepcid] 20 mg PO DAILY 11/21/22 11/21/22 nitrofurantoin macrocrystaL 100 mg PO BID 11/21/22 11/21/22 [Nitrofurantoin] Previous Rx's Medication Instructions Recorded Amoxicillin 500 mg PO Q8H #30 capsule 11/21/22 Amoxicillin 875 mg PO Q12HR #10 tablet 03/12/23 Doxylamine Succinate [Unisom] 12.5 mg PO Q8HR #15 tablet 03/12/23 Allergies Allergy/AdvReac Type Severity Reaction Status Date / Time No Known Allergies Allergy Verified 03/12/23 13:01 Review of Systems ROS Statement: Those systems with pertinent positive or pertinent negative responses have been documented in the HPI. ROS Other: All systems not noted in ROS Statement are negative. Past Medical History Past Medical History: No Reported History Additional Past Medical History / Comment(s): IBS History of Any Multi-Drug Resistant Organisms: None Reported Past Surgical History: No Surgical Hx Reported Past Psychological History: No Psychological Hx Reported Past Alcohol Use History: None Reported Past Drug Use History: None Reported - Past Family History Father History Unknown: Yes General Exam Limitations: language barrier General appearance: alert, in no apparent distress Head exam: Present: atraumatic, normocephalic, normal inspection Eye exam: Present: normal appearance ENT exam: Present: normal exam, mucous membranes moist, normal external ear exam. Absent: TM's normal bilaterally (TMs erythematous and bulging bilaterally) Neck exam: Present: normal inspection. Absent: tenderness, meningismus, lymphadenopathy Respiratory exam: Present: normal lung sounds bilaterally. Absent: respiratory distress, wheezes, rales, rhonchi, stridor Cardiovascular Exam: Present: regular rate, normal rhythm, normal heart sounds. Absent: systolic murmur, diastolic murmur, rubs, gallop, clicks GI/Abdominal exam: Present: soft, normal bowel sounds. Absent: distended, tenderness, guarding, rebound, rigid Extremities exam: Present: normal inspection, full ROM, normal capillary refill. Absent: tenderness, pedal edema, joint swelling, calf tenderness Back exam: Present: normal inspection Neurological exam: Present: alert Psychiatric exam: Present: normal affect, normal mood Skin exam: Present: warm, dry, intact, normal color. Absent: rash Course Vital Signs 03/12/23 03/12/23 03/12/23 12:58 15:13 16:38 Temperature 97.8 F 98.0 F 98.0 F Pulse Rate 91 80 82 Respiratory 16 19 17 Rate Blood Pressure 113/70 121/77 117/72 O2 Sat by Pulse 98 100 99 Oximetry Medical Decision Making - Medical Decision Making Was pt. sent in by a medical professional or institution ([facility], [facility], urgent care, hospital, or long term...) When possible be specific @ -[No] Did you speak to anyone other than the patient for history (EMS, parent, family, police, friend...)? What history was obtained from this source @ -[No] Did you review nursing and triage notes (agree or disagree)? Why? @ -[I reviewed and agree with nursing and triage notes] Were old charts reviewed (outside hosp., previous admission, EMS record, old EKG, old radiological studies, urgent care reports/EKG's, long term records)? Report findings @ -[Blood bank records reviewed which showed O+ blood type] Differential Diagnosis (chest pain, altered mental status, abdominal pain women, abdominal pain men, vaginal bleeding, weakness, fever, dyspnea, syncope, headache, dizziness, GI bleed, back pain, seizure, CVA, palpatations, mental health, musculoskeletal)? @ -[Differential Abdominal Pain Women: Appendicitis, Cholecystitis, diverticulosis, ischemic bowel, pancreatitis, hepatitis, UTI, gastroenteritis, AAA, incarcerated hernia, bowel obstruction, constipation, inflammatory bowel, hepatitis, peptic ulcer disease, splenic infarction, perforated viscus, vulvitis, ovarian torsion, PID, kidney stone, placenta abruption, this is not meant to be an all-inclusive list] EKG interpreted by me (3pts min.). @ -[None] X-rays interpreted by me (1pt min.). @ -[None done] CT interpreted by me (1pt min.). @ -[None done] U/S interpreted by me (1pt. min.). @ -[None done] What testing was considered but not performed or refused? (CT, X-rays, U/S, labs)? Why? @ -[None] What meds were considered but not given or refused? Why? @ -[None] Did you discuss the management of the patient with other professionals (professionals i.e. , PA, [facility], lab, RT, psych nurse, social work administrator, neonatal specialist, teacher, aoc director intelligence officer, case managers)? Give summary @ -[No] Was smoking cessation discussed for >3mins.? @ -[No] Was critical care preformed (if so, how long)? @ -[No] Were there social determinants of health that impacted care today? How? (Homelessness, low income, unemployed, alcoholism, drug addiction, transportation, low edu. Level, literacy, decrease access to med. care, senior living, rehab)? @ -[No] Was there de-escalation of care discussed even if they declined (Discuss DNR or withdrawal of care, Hospice)? DNR status @ -[No] What co-morbidities impacted this encounter? (DM, HTN, Smoking, COPD, CAD, Cancer, CVA, ARF, Chemo, Hep., AIDS, mental health diagnosis, sleep apnea, morbi d obesity)? @ -[None] Was patient admitted / discharged? Hospital course, mention meds given and route, prescriptions, significant lab abnormalities, going to OR and other pertinent info. @ -[Discharged. Patient presented emergency department chief complaint of upper respiratory type symptoms including cough, sore throat, ear pain along wi th lower abdominal cramping, nausea, vomiting with associated . Patient is around 14 weeks . She denies vaginal bleeding. Blood type O positive according to our records. CBC within normal limits, CMP showed sodium 137, potassium 3.8; UA shows trace protein, 3+ ketones, small blood, rare bacteria. US showed single live intrauterine gestation with us age of 13 weeks, 6 days. small subchorionic hemorrhage. Patient given IV normal saline, Reglan, and B6 she reports improvement in her symptoms. Patient has Zofran at home which she is taking and does not have improvement in her nausea. Prescription was sent for doxylamine and amoxicillin for otitis media. Advised patient to follow up with her primary care provider. Return precautions discussed. Case discussed with my attending, Dr. Hill] Undiagnosed new problem with uncertain prognosis? @ -[No] Drug Therapy requiring intensive monitoring for toxicity (Heparin, Nitro, Insulin, Cardizem)? @ -[No] Were any procedures done? @ -[No] Diagnosis/symptom? @ -[vomiting in ] Acute, or Chronic, or Acute on Chronic? @ -[acute] Uncomplicated (without systemic symptoms) or Complicated (systemic symptoms)? @ -[uncomplicated] Side effects of treatment? @ -[No] Exacerbation, Progression, or Severe Exacerbation? @ -[No] Poses a threat to life or bodily function? How? (Chest pain, [place], [place], pneumonia, PE, COPD, DKA, ARF, appy, cholecystitis, CVA, Diverticulitis, Homicidal, Suicidal, threat to staff... and all critical care pts) @ -[No] Diagnosis/symptom? @ -[otitis media] Acute, or Chronic, or Acute on Chronic? @ -[acute] Uncomplicated (without systemic symptoms) or Complicated (systemic symptoms)? @ -[uncomplicated] Side effects of treatment? @ -[No] Exacerbation, Progression, or Severe Exacerbation? @ -[No] Poses a threat to life or bodily function? How? (Chest pain, [place], [place], pneumonia, PE, COPD, DKA, ARF, appy, cholecystitis, CVA, Diverticulitis, Homicidal, Suicidal, threat to staff... and all critical care pts) @ -[No] - Lab Data Result diagrams: 03/12/23 14:00 03/12/23 14:00 Lab Results 03/12/23 03/12/2323 Range/Units 14:00 14:00 14:00 WBC 4.4 (3.8-10.6) k/uL RBC 4.48 (3.80-5.40) m/uL Hgb 13.4 (11.4-16.0) gm/dL Hct 38.7 (34.0-46.0) % MCV 86.4 (80.0-100.0) fL MCH 29.9 (25.0-35.0) pg MCHC 34.6 (31.0-37.0) g/dL RDW 14.6 (11.5-15.5) % Plt Count 194 (150-450) k/uL MPV 9.5 Neutrophils % 67 % Lymphocytes % 22 % Monocytes % 8 % Eosinophils % 1 % Basophils % 0 % Neutrophils # 2.9 (1.3-7.7) k/uL Lymphocytes # 1.0 (1.0-4.8) k/uL Monocytes # 0.4 (0-1.0) k/uL Eosinophils # 0.1 (0-0.7) k/uL Basophils # 0.0 (0-0.2) k/uL Sodium 137 (137-145) mmol/L Potassium 3.8 (3.5-5.1) mmol/L Chloride 104 (98-107) mmol/L Carbon Dioxide 22 (22-30) mmol/L Anion Gap 11 mmol/L BUN 5 L (7-17) mg/dL Creatinine 0.35 L (0.52-1.04) mg/dL Est GFR (CKD-EPI)AfAm >90 (>60 ml/min/1.73 sqM) Est GFR (CKD-EPI)NonAf >90 (>60 ml/min/1.73 sqM) Glucose 89 (74-99) mg/dL Calcium 9.4 (8.4-10.2) mg/dL Total Bilirubin 0.5 (0.2-1.3) mg/dL AST 23 (14-36) U/L ALT 16 (4-34) U/L Alkaline Phosphatase 66 (38-126) U/L Total Protein 7.5 (6.3-8.2) g/dL Albumin 4.4 (3.5-5.0) g/dL Amylase 65 (30-110) U/L Lipase 72 (23-300) U/L Urine Color Urine Appearance (Clear) Urine pH (5.0-8.0) Ur Specific Mccarley (1.001-1.035) Urine Protein (Negative) Urine Glucose (UA) (Negative) Urine Ketones (Negative) Urine Blood (Negative) Urine Nitrite (Negative) Urine Bilirubin (Negative) Urine Urobilinogen (<2.0) mg/dL Ur Leukocyte Esterase (Negative) Urine RBC (0-5) /hpf Urine WBC (0-5) /hpf Ur Squamous Epith Cells (0-4) /hpf Amorphous Sediment (None) /hpf Urine Bacteria (None) /hpf Urine Mucus (None) /hpf Influenza Type A (PCR) (Not Detectd) Influenza Type B (PCR) (Not Detectd) RSV (PCR) (Not Detectd) SARS-CoV-2 (PCR) (Not Detectd) Group A Strep (PCR) NOT DETECTED (Not Detectd) 03/12/23 03/12/23 Range/Units 14:00 15:51 WBC (3.8-10.6) k/uL RBC (3.80-5.40) m/uL Hgb (11.4-16.0) gm/dL Hct (34.0-46.0) % MCV (80.0-100.0) fL MCH (25.0-35.0) pg MCHC (31.0-37.0) g/dL RDW (11.5-15.5) % Plt Count (150-450) k/uL MPV Neutrophils % % Lymphocytes % % Monocytes % % Eosinophils % % Basophils % % Neutrophils # (1.3-7.7) k/uL Lymphocytes # (1.0-4.8) k/uL Monocytes # (0-1.0) k/uL Eosinophils # (0-0.7) k/uL Basophils # (0-0.2) k/uL Sodium (137-145) mmol/L Potassium (3.5-5.1) mmol/L Chloride (98-107) mmol/L Carbon Dioxide (22-30) mmol/L Anion Gap mmol/L BUN (7-17) mg/dL Creatinine (0.52-1.04) mg/dL Est GFR (CKD-EPI)AfAm (>60 ml/min/1.73 sqM) Est GFR (CKD-EPI)NonAf (>60 ml/min/1.73 sqM) Glucose (74-99) mg/dL Calcium (8.4-10.2) mg/dL Total Bilirubin (0.2-1.3) mg/dL AST (14-36) U/L ALT (4-34) U/L Alkaline Phosphatase (38-126) U/L Total Protein (6.3-8.2) g/dL Albumin (3.5-5.0) g/dL Amylase (30-110) U/L Lipase (23-300) U/L Urine Color Yellow Urine Appearance Cloudy H (Clear) Urine pH 7.5 (5.0-8.0) Ur Specific M[place]arley 1.019 (1.001-1.035) Urine Protein Trace H (Negative) Urine Glucose (UA) Negative (Negative) Urine Ketones 3+ H (Negative) Urine Blood Small H (Negative) Urine Nitrite Negative (Negative) Urine Bilirubin Negative (Negative) Urine Urobilinogen <2.0 (<2.0) mg/dL Ur Leukocyte Esterase Negative (Negative) Urine RBC 7 H (0-5) /hpf Urine WBC 1 (0-5) /hpf Ur Squamous Epith Cells 3 (0-4) /hpf Amorphous Sediment Moderate H (None) /hpf Urine Bacteria Rare H (None) /hpf Urine Mucus Few H (None) /hpf Influenza Type A (PCR) Not Detected (Not Detectd) Influenza Type B (PCR) Not Detected (Not Detectd) RSV (PCR) Not Detected (Not Detectd) SARS-CoV-2 (PCR) Not Detected (Not Detectd) Group A Strep (PCR) (Not Detectd) Disposition Clinical Impression: Otitis media, Vomiting affecting Disposition: HOME SELF-CARE Condition: Stable Additional Instructions: Follow-up with Dr. Shannon. Take antibiotics for ear infection to completion. You may take Tylenol as needed for pain. Return to the emergency department for new or worsening symptoms. Prescriptions: Amoxicillin 875 mg PO Q12HR #10 tablet Doxylamine Succinate [Unisom] 12.5 mg PO Q8HR #15 tablet Is patient prescribed a controlled substance at d/c from ED?: No Referrals: Renetta Woodson MD [Primary Care Provider] - 1-2 days Time of Disposition: 17:05
[2023-03-12 16:22] LABS: Amorphous Sediment,Urine Moderate /hpf; Appearance,Urine Cloudy (Clear); Bacteria,Urine Rare /hpf; Bilirubin,Urine Negative (Negative); Blood,Urine Small (Negative); Color,Urine Yellow; Glucose,Urine (UA) Negative (Negative); Ketones,Urine 3+ (Negative); Leukocyte Esterase,Urine Negative (Negative); Mucus,Urine Few /hpf; Nitrite,Urine Negative (Negative); PH, Urine 7.5 (5.0-8.0); Protein,Urine Trace (Negative); RBC,Urine 7 /hpf (0-5); Specific Gravity,Urine 1.019 (1.001-1.035); Squamous Epithelial Cell,Urine 3 /hpf (0-4); Urobilinogen,Urine <2.0 mg/dL (<2.0); WBC,Urine 1 /hpf (0-5)
[2023-03-12 16:38] VITALS: BP 117/72; PULSE 82; RESP 17
== END 2023-03-12 17:13 | disposition home or self-care (01) ==
LOC: EC 12:51
DX: O21.9 Vomiting of pregnancy, unspecified (principal); O99.891 Other specified diseases and conditions complicating pregnancy; H66.93 Otitis media, unspecified, bilateral; Z20.822 Contact with and (suspected) exposure to COVID-19; Z3A.13 13 weeks gestation of pregnancy
CPT/HCPCS: 36415; 87651; 80053; 82150; 83690; 85025; 81001; 87636; 76801; 99284; 96374; 96375; 96361 ×2; J3415; J2765

== ENCOUNTER 2023-05-03 22:10 | Emergency (ER) | payer OTHER ==
[2023-05-03 22:21] VITALS: TEMP 99.1
[2023-05-03] MEDS ORDERED: SODIUM CHLORIDE 0.9% 1,000 ML IV ONE (22:57)
[2023-05-03 23:34] LABS: Appearance,Urine Clear (Clear); Bilirubin,Urine Negative (Negative); Blood,Urine Trace (Negative); Color,Urine Light Yellow; Glucose,Urine (UA) Negative (Negative); Ketones,Urine Negative (Negative); Leukocyte Esterase,Urine Negative (Negative); Mucus,Urine Rare /hpf; Nitrite,Urine Negative (Negative); Protein,Urine Negative (Negative); RBC,Urine <1 /hpf (0-5); Squamous Epithelial Cell,Urine 3 /hpf (0-4); Urobilinogen,Urine <2.0 mg/dL (<2.0); WBC,Urine 1 /hpf (0-5)
[2023-05-03 23:35] LABS: Basophils % (A) 0 %; Eosinophils # (A) 0.1 k/uL (0-0.7); Eosinophils % (A) 1 %; HCT 34.6 % (34.0-46.0); HGB 12.3 gm/dL (11.4-16.0); Lymphocytes # (A) 1.5 k/uL (1.0-4.8); Lymphocytes % (A) 27 %; MCH 31.3 pg (25.0-35.0); MCHC 35.7 g/dL (31.0-37.0); MCV 87.8 fL (80.0-100.0); Mean Platelet Volume 9.8; Monocytes # (A) 0.4 k/uL (0-1.0); Monocytes % (A) 7 %; Neutrophils # (A) 3.5 k/uL (1.3-7.7); Neutrophils % (A) 63 %; Platelet Count 157 k/uL (150-450); RBC 3.94 m/uL (3.80-5.40); RDW 15.2 % (11.5-15.5); WBC 5.6 k/uL (3.8-10.6)
[2023-05-03 23:44] LABS: ALT 12 U/L (4-34); AST 19 U/L (14-36); African American GFR (CKD) >90 (>60 ml/min/1.73 sqM); Albumin 3.6 g/dL (3.5-5.0); Alkaline Phosphatase 79 U/L (38-126); Anion Gap 9 mmol/L; Blood Urea Nitrogen 5 mg/dL (7-17); Carbon Dioxide 19 mmol/L (22-30); Chloride 110 mmol/L (98-107); Glucose 93 mg/dL (74-99); Magnesium 1.8 mg/dL (1.6-2.3); Non-African American GFR(CKD) >90 (>60 ml/min/1.73 sqM); Potassium 3.5 mmol/L (3.5-5.1); Sodium 138 mmol/L (137-145); Total Bilirubin 0.3 mg/dL (0.2-1.3); Total Protein 6.7 g/dL (6.3-8.2)
[2023-05-03 23:57] LABS: INR 0.9 (<1.2); Partial Thromboplastin Time 23.5 sec (22.0-30.0); Prothrombin Time 9.8 sec (9.0-12.0)
[2023-05-04] MEDS ORDERED: ONDANSETRON 4 MG/2 ML VIAL IVP STA (01:13)
[2023-05-04] MEDS ORDERED: FAMOTIDINE 20 MG/2 ML VIAL IV STA (01:15)
--- NOTE | 2023-05-04 01:19 | ED ---
General Adult HPI - General Chief complaint: Nausea/Vomiting/Diarrhea Stated complaint: Vomiting Time Seen by Provider: 05/03/23 22:25 Source: patient Mode of arrival: ambulatory Limitations: language barrier - History of Present Illness Initial comments: This is a 37-year-old female who is reportedly 5 months presents emergency department for reported left-sided chest pain and possible nausea. The patient speaks Bulgarian and initially the was present at the bedside for translation. It was reported that the patient has had continued left-sided chest pain over the last 2 days and also had nausea. The translation was difficult to get a history of however it was obtained that the patient had left- sided chest pain which brought her into the emergency department. The patient denied any vaginal discharge or bleeding. The patient also denied any abdominal pain. She was otherwise resting in bed comfortably. - Related Data Home Medications Medication Instructions Recorded Confirmed Acetaminophen Tab [Tylenol Tab] 500 mg PO Q6H PRN 11/21/22 11/21/22 Ergocalciferol [Vitamin D2 (1250 1,250 mcg PO FR 11/21/22 11/21/22 Mcg = 15931 Iu)] Famotidine [Pepcid] 20 mg PO DAILY 11/21/22 11/21/22 nitrofurantoin macrocrystaL 100 mg PO BID 11/21/22 11/21/22 [Nitrofurantoin] Previous Rx's Medication Instructions Recorded Amoxicillin 500 mg PO Q8H #30 capsule 11/21/22 Amoxicillin 875 mg PO Q12HR #10 tablet 03/12/23 Doxylamine Succinate [Unisom] 12.5 mg PO Q8HR #15 tablet 03/12/23 Famotidine [Pepcid] 20 mg PO HS #14 tablet 05/04/23 Ondansetron Odt [Zofran Odt] 4 mg PO Q8HR PRN #10 tab 05/04/23 Allergies Allergy/AdvReac Type Severity Reaction Status Date / Time No Known Allergies Allergy Verified 03/12/23 13:01 Review of Systems ROS Statement: Those systems with pertinent positive or pertinent negative responses have been documented in the HPI. ROS Other: All systems not noted in ROS Statement are negative. Past Medical History Past Medical History: No Reported History Additional Past Medical History / Comment(s): IBS History of Any Multi-Drug Resistant Organisms: None Reported Past Surgical History: No Surgical Hx Reported Past Psychological History: No Psychological Hx Reported Past Alcohol Use History: None Reported Past Drug Use History: None Reported - Past Family History Father History Unknown: Yes General Exam Limitations: language barrier (Patient only speaks Bulgarian, wasn't initially present for translation for initial history. Official translating device was used for the continuation and final results.) General appearance: alert, in no apparent distress Head exam: Present: atraumatic, normocephalic, normal inspection Eye exam: Present: normal appearance, PERRL Pupils: Present: normal accommodation ENT exam: Present: normal exam, normal oropharynx, mucous membranes moist Neck exam: Present: normal inspection, full ROM Respiratory exam: Present: normal lung sounds bilaterally Cardiovascular Exam: Present: regular rate, normal rhythm, normal heart sounds GI/Abdominal exam: Present: soft, normal bowel sounds Extremities exam: Present: normal inspection, full ROM Back exam: Present: normal inspection, full ROM Neurological exam: Present: alert, oriented X3, CN II-XII intact Psychiatric exam: Present: normal affect, normal mood Skin exam: Present: warm, dry Course Vital Signs 05/03/23 05/03/23 05/03/23 22:18 23:30 23:45 Temperature 99.1 F Pulse Rate 100 81 80 Respiratory 18 18 18 Rate Blood Pressure 115/81 121/76 116/70 O2 Sat by Pulse 98 98 100 Oximetry 05/03/23 05/04/23 05/04/23 23:46 00:00 01:00 Temperature Pulse Rate 80 77 90 Respiratory 16 18 18 Rate Blood Pressure 104/77 104/77 114/68 O2 Sat by Pulse 99 99 98 Oximetry 05/04/23 01:30 Temperature Pulse Rate 83 Respiratory 16 Rate Blood Pressure 115/68 O2 Sat by Pulse 98 Oximetry EKG Findings - EKG Comments: EKG Findings:: An EKG was obtained and was interpreted by myself showing a rate of 81, MO interval 135, QRS duration of 88 and QTC of 410. This EKG showed a normal sinus rhythm with no ST segment elevation or depression noted. Medical Decision Making - Medical Decision Making Was pt. sent in by a medical professional or institution (, PA, MANAGER PATIENT, urgent care, hospital, or detention...) When possible be specific @ -No Did you speak to anyone other than the patient for history (EMS, parent, family, police, friend...)? What history was obtained from this source @ -Yes, I did speak with the who is translating at the bedside and confirmed that the patient was having left-sided chest pain and nausea. Did you review nursing and triage notes (agree or disagree)? Why? @ -I reviewed and agree with nursing and triage notes Were old charts reviewed (outside hosp., previous admission, EMS record, old EKG, old radiological studies, urgent care reports/EKG's, detention records)? Report findings @ -No old charts were reviewed Differential Diagnosis (chest pain, altered mental status, abdominal pain women, abdominal pain men, vaginal bleeding, weakness, fever, dyspnea, syncope, headache, dizziness, GI bleed, back pain, seizure, CVA, palpatations, mental health)? @ -Nausea, vomiting and , gastroenteritis, peptic ulcer disease EKG interpreted by me (3pts min.). @ -As above X-rays interpreted by me (1pt min.). @ -None done CT interpreted by me (1pt min.). @ -None done U/S interpreted by me (1pt. min.). @ -None done What testing was considered but not performed or refused? (CT, X-rays, U/S, labs)? Why? @ -None What meds were considered but not given or refused? Why? @ -None Did you discuss the management of the patient with other professionals (professionals i.e. , PA, MANAGER PATIENT, lab, RT, psych nurse, foster care social worker, safety supervisor, teacher, employment security officer, disease case manager)? Give summary @ -No Was smoking cessation discussed for >3mins.? @ -No Was critical care preformed (if so, how long)? @ -No Were there social determinants of health that impacted care today? How? (Homelessness, low income, unemployed, alcoholism, drug addiction, transportation, low edu. Level, literacy, decrease access to med. care, long term, rehab)? @ -No Was there de-escalation of care discussed even if they declined (Discuss DNR or withdrawal of care, Hospice)? DNR status @ -No What co-morbidities impacted this encounter? (DM, HTN, Smoking, COPD, CAD, Cancer, CVA, ARF, Chemo, Hep., AIDS, mental health diagnosis, sleep apnea, morbid obesity)? @ -None Was patient admitted / discharged? Hospital course, mention meds given and route, prescriptions, significant lab abnormalities, going to OR and other pertinent info. @ -The patient was seen and evaluated emergency department. Physical exam, the patient was resting in bed without any acute distress. Vital signs admission were stable. Due to the nature of the patient's reported complaints, laboratory workup was obtained and was all within normal limits. Chest x-ray was not performed at this time secondary to the patient's and atypical nature of her chest pain. Once the results were completed I did use a official translating device and it was confirmed that the patient did not have any chest pain but had nausea and acid reflux pain. 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 The patient was also advised that there was no answer as to why she was likely "annoyed with everything" and to follow-up with her PARALEGALS for further evaluation. The patient was agreeable to this and all of her questions were answered through the translating device. The patient was discharged home with her in stable condition. Undiagnosed new problem with uncertain prognosis? @ -No Drug Therapy requiring intensive monitoring for toxicity (Heparin, Nitro, Insulin, Cardizem)? @ -No Were any procedures done? @ -No Diagnosis/symptom? @ -Nausea, vomiting in Acute, or Chronic, or Acute on Chronic? @ -Acute on chronic Uncomplicated (without systemic symptoms) or Complicated (systemic symptoms)? @ -Complicated Side effects of treatment? @ -No Exacerbation, Progression, or Severe Exacerbation? @ -No Poses a threat to life or bodily function? How? (Chest pain, [place], [place], pneumonia, PE, COPD, DKA, ARF, appy, cholecystitis, CVA, Diverticulitis, Homicidal, Suicidal, threat to staff... and all critical care pts) @ -No - Lab Data Result diagrams: 05/03/23 23:21 05/03/23 23:21 Lab Results 05/03/23 05/03/23 05/03/23 Range/Units 23:04 23:21 23:21 WBC 5.6 (3.8-10.6) k/uL RBC 3.94 (3.80-5.40) m/uL Hgb 12.3 (11.4-16.0) gm/dL Hct 34.6 (34.0-46.0) % MCV 87.8 (80.0-100.0) fL MCH 31.3 (25.0-35.0) pg MCHC 35.7 (31.0-37.0) g/dL RDW 15.2 (11.5-15.5) % Plt Count 157 (150-450) k/uL MPV 9.8 Neutrophils % 63 % Lymphocytes % 27 % Monocytes % 7 % Eosinophils % 1 % Basophils % 0 % Neutrophils # 3.5 (1.3-7.7) k/uL Lymphocytes # 1.5 (1.0-4.8) k/uL Monocytes # 0.4 (0-1.0) k/uL Eosinophils # 0.1 (0-0.7) k/uL Basophils # 0.0 (0-0.2) k/uL PT 9.8 (9.0-12.0) sec INR 0.9 (<1.2) APTT 23.5 (22.0-30.0) sec Sodium (137-145) mmol/L Potassium (3.5-5.1) mmol/L Chloride (98-107) mmol/L Carbon Dioxide (22-30) mmol/L Anion Gap mmol/L BUN (7-17) mg/dL Creatinine (0.52-1.04) mg/dL Est GFR (CKD-EPI)AfAm (>60 ml/min/1.73 sqM) Est GFR (CKD-EPI)NonAf (>60 ml/min/1.73 sqM) Glucose (74-99) mg/dL Calcium (8.4-10.2) mg/dL Magnesium (1.6-2.3) mg/dL Total Bilirubin (0.2-1.3) mg/dL AST (14-36) U/L ALT (4-34) U/L Alkaline Phosphatase (38-126) U/L Troponin I (0.000-0.034) ng/mL Total Protein (6.3-8.2) g/dL Albumin (3.5-5.0) g/dL Urine Color Light Yellow Urine Appearance Clear (Clear) Urine pH 6.0 (5.0-8.0) Ur Specific [place] 1.010 (1.001-1.035) Urine Protein Negative (Negative) Urine Glucose (UA) Negative (Negative) Urine Ketones Negative (Negative) Urine Blood Trace H (Negative) Urine Nitrite Negative (Negative) Urine Bilirubin Negative (Negative) Urine Urobilinogen <2.0 (<2.0) mg/dL Ur Leukocyte Esterase Negative (Negative) Urine RBC <1 (0-5) /hpf Urine WBC 1 (0-5) /hpf Ur Squamous Epith Cells 3 (0-4) /hpf Urine Mucus Rare H (None) /hpf 05/03/23 05/03/23 Range/Units 23:21 23:21 WBC (3.8-10.6) k/uL RBC (3.80-5.40) m/uL Hgb (11.4-16.0) gm/dL Hct (34.0-46.0) % MCV (80.0-100.0) fL MCH (25.0-35.0) pg MCHC (31.0-37.0) g/dL RDW (11.5-15.5) % Plt Count (150-450) k/uL MPV Neutrophils % % Lymphocytes % % Monocytes % % Eosinophils % % Basophils % % Neutrophils # (1.3-7.7) k/uL Lymphocytes # (1.0-4.8) k/uL Monocytes # (0-1.0) k/uL Eosinophils # (0-0.7) k/uL Basophils # (0-0.2) k/uL PT (9.0-12.0) sec INR (<1.2) APTT (22.0-30.0) sec Sodium 138 (137-145) mmol/L Potassium 3.5 (3.5-5.1) mmol/L Chloride 110 H (98-107) mmol/L Carbon Dioxide 19 L (22-30) mmol/L Anion Gap 9 mmol/L BUN 5 L (7-17) mg/dL Creatinine 0.30 L (0.52-1.04) mg/dL Est GFR (CKD-EPI)AfAm >90 (>60 ml/min/1.73 sqM) Est GFR (CKD-EPI)NonAf >90 (>60 ml/min/1.73 sqM) Glucose 93 (74-99) mg/dL Calcium 9.0 (8.4-10.2) mg/dL Magnesium 1.8 (1.6-2.3) mg/dL Total Bilirubin 0.3 (0.2-1.3) mg/dL AST 19 (14-36) U/L ALT 12 (4-34) U/L Alkaline Phosphatase 79 (38-126) U/L Troponin I <0.012 (0.000-0.034) ng/mL Total Protein 6.7 (6.3-8.2) g/dL Albumin 3.6 (3.5-5.0) g/dL Urine Color Urine Appearance (Clear) Urine pH (5.0-8.0) Ur Specific [place] (1.001-1.035) Urine Protein (Negative) Urine Glucose (UA) (Negative) Urine Ketones (Negative) Urine Blood (Negative) Urine Nitrite (Negative) Urine Bilirubin (Negative) Urine Urobilinogen (<2.0) mg/dL Ur Leukocyte Esterase (Negative) Urine RBC (0-5) /hpf Urine WBC (0-5) /hpf Ur Squamous Epith Cells (0-4) /hpf Urine Mucus (None) /hpf Disposition Clinical Impression: Nausea, Acid reflux Disposition: HOME SELF-CARE Condition: Stable Instructions (If sedation given, give patient instructions): Nausea and Vomi ting in (ED), GERD (Gastroesophageal Reflux Disease) (DC) Prescriptions: Famotidine [Pepcid] 20 mg PO HS #14 tablet Ondansetron Odt [Zofran Odt] 4 mg PO Q8HR PRN #10 tab PRN Reason: Nausea Is patient prescribed a controlled substance at d/c from ED?: No Referrals: Renetta Woodson MD [Primary Care Provider] - 1-2 days Time of Disposition: 01:00
[2023-05-04 01:56] VITALS: BP 115/68; PULSE 83; RESP 16
== END 2023-05-04 01:56 | disposition home or self-care (01) ==
LOC: EC 22:10
DX: O99.612 Diseases of the digestive system complicating pregnancy, second trimester (principal); K21.9 Gastro-esophageal reflux disease without esophagitis; Z3A.20 20 weeks gestation of pregnancy
CPT/HCPCS: 36415; 93005; 80053; 83735; 84484; 85025; 85610; 85730; 81001; 99284; 96374; 96375; 96361 ×2; J2405

== ENCOUNTER 2023-09-16 06:08 | Inpatient (IN) | payer OTHER ==
[2023-09-16] MEDS ORDERED: miSOPROStoL 200 MCG TAB PO PRN (06:25)
[2023-09-16] MEDS ORDERED: METHYLERGONOVINE 0.2 MG/ML 1 ML AMP IM PRN (06:25)
[2023-09-16] MEDS ORDERED: TRANEXAMIC 1,000 MG/100ML-NACL 1,000 MG in EMPTY BAG 1 BAG IV PRN (06:25)
[2023-09-16] MEDS ORDERED: LIDOCAINE 0.5% (PF) 5 MG/ML (50 ML SDV) SQ PRN (06:25)
[2023-09-16] MEDS ORDERED: TERBUTALINE 1 MG/ML VIAL SQ PRN (06:25)
[2023-09-16] MEDS ORDERED: CARBOPROST TROMETHAMINE 250 MCG/ML 1 ML AMP IM PRN (06:25)
[2023-09-16] MEDS ORDERED: OXYTOCIN 10 UNIT/ML 1 ML VIAL IM PRN (06:25)
[2023-09-16] MEDS: LACTATED RINGERS 1,000 ML IV SCH ×2 (06:55→14:30)
[2023-09-16 07:04] LABS: Anisocytosis Slight; Basophils % (A) 0 %; Eosinophils # (A) 0.1 k/uL (0-0.7); Eosinophils % (A) 1 %; HGB 12.3 gm/dL (11.4-16.0); Lymphocytes # (A) 1.6 k/uL (1.0-4.8); Lymphocytes % (A) 26 %; MCH 29.5 pg (25.0-35.0); MCHC 34.2 g/dL (31.0-37.0); MCV 86.1 fL (80.0-100.0); Mean Platelet Volume 11.7; Monocytes # (A) 0.4 k/uL (0-1.0); Monocytes % (A) 6 %; Neutrophils # (A) 3.9 k/uL (1.3-7.7); Neutrophils % (A) 63 %; Platelet Count 141 k/uL (150-450); RBC 4.18 m/uL (3.80-5.40); RDW 16.1 % (11.5-15.5); WBC 6.2 k/uL (3.8-10.6)
[2023-09-16] MEDS: OXYTOCIN 30 UNITS/500 ML NS 30 UNIT in SALINE 1 500ML.BAG IV SCH ×2 (08:30→18:10)
--- NOTE | 2023-09-16 08:37 | P.HPOB ---
History of Present Illness H&P Date: 09/16/23 Chief Complaint: postdates induction of labor 37 year old presents at 40 weeks 5 days for induction of labor. Her cervix is 1-2/60/-2. She is not marybeth. heart tones 135 with moderate variability and reactive. Review of Systems All systems: negative Constitutional: Denies chills, Denies fever Eyes: denies blurred vision, denies pain Ears, nose, mouth and throat: Denies headache, Denies sore throat Cardiovascular: Denies chest pain, Denies shortness of breath Respiratory: Denies cough Gastrointestinal: Denies abdominal pain, Denies diarrhea, Denies nausea, Denies vomiting Genitourinary: Denies dysuria, Denies hematuria Musculoskeletal: Denies myalgias Integumentary: Denies pruritus, Denies rash Neurological: Denies numbness, Denies weakness Psychiatric: Denies anxiety, Denies depression Endocrine: Denies fatigue, Denies weight change Past Medical History Past Medical History: No Reported History Additional Past Medical History / Comment(s): IBS. Obstetric history: She's had 4 previous vaginal deliveries. Blood type is O+, antibodies negative, rubella immune, RPR nonreactive, hepatitis B negative, hepatitis C negative, toxoplasmosis negative. History of Any Multi-Drug Resistant Organisms: None Reported Past Surgical History: No Surgical Hx Reported Past Psychological History: No Psychological Hx Reported Smoking Status: Never smoker Past Alcohol Use History: None Reported Past Drug Use History: None Reported - Past Family History Father History Unknown: Yes Medications and Allergies Home Medications Medication Instructions Recorded Confirmed Type Vit No.179/Iron/Folic 1 tab PO DAILY 09/16/23 09/16/23 History [ Tablet] Allergies Allergy/AdvReac Type Severity Reaction Status Date / Time No Known Allergies Allergy Verified 03/12/23 13:01 Exam Osteopathic Statement: *. No significant issues noted on an osteopathic structural exam other than those noted in the History and Physical/Consult. Vital Signs Temp Pulse Resp BP Pulse Ox 09/16/23 06:25 97.9 F 89 16 122/67 98 Intake and Output 09/15/23 09/16/23 09/16/23 22:59 06:59 14:59 Other: Weight 80.739 kg Heart: Regular rate and rhythm Lungs: Clear to auscultation bilaterally Abdomen: Soft, nontender Extremities: Negative Homans sign Results Result Diagrams: 09/16/23 06:50 Abnormal Lab Results - Last 24 Hours (Table) 09/16/23 Range/Units 06:50 RDW 16.1 H (11.5-15.5) % Plt Count 141 L (150-450) k/uL Assessment and Plan (1) Encounter for induction of labor Current Visit: Yes Status: Acute Code(s): Z34.90 - ENCNTR FOR SUPRVSN OF NORMAL , UNSP, UNSP TRIMESTER SNOMED Code(s): 306192071 (2) Post-term , 40-42 weeks of gestation Current Visit: Yes Status: Acute Code(s): O48.0 - POST-TERM SNOMED Code(s): 30650399104238 Plan: 1. Induction of labor with amniotomy and Pitocin 2. Anticipate normal vaginal delivery
[2023-09-16] MEDS ORDERED: ROPIVACAINE 5 MG/ML 30 ML VIAL ONE (11:37)
[2023-09-16] MEDS ORDERED: fentaNYL (PF) 50 MCG/ML 5 ML AMP ONE (11:37)
[2023-09-16] MEDS ORDERED: SODIUM CHLORIDE 0.9% 250 ML BAG ONE (11:37)
[2023-09-16] MEDS ORDERED: BENZOCAINE/MENTHOL SPRAY 1 GM/SPRAY AEROSOL TOPICAL PRN (18:03)
[2023-09-16] MEDS ORDERED: diphenhydrAMINE 50 MG/ML 1 ML VIAL IVP PRN ×2 (18:03)
[2023-09-16] MEDS ORDERED: diphenhydrAMINE 25 MG CAP PO PRN (18:03)
[2023-09-16] MEDS ORDERED: HYDROCORTISONE 2.5% RECTAL CREAM 30 GM TUBE RECTAL PRN (18:03)
[2023-09-16] MEDS ORDERED: LANOLIN CREAM 5 GM TUBE TOPICAL PRN (18:03)
[2023-09-16] MEDS ORDERED: diphenhydrAMINE 50 MG CAP PO PRN (18:03)
[2023-09-16] MEDS ORDERED: SIMETHICONE 80 MG CHEWABLE PO PRN (18:03)
[2023-09-16] MEDS ORDERED: ZOLPIDEM 5 MG TAB PO PRN (18:03)
[2023-09-16] MEDS: ACETAMINOPHEN TAB 325 MG TAB PO PRN (18:10)
[2023-09-16] MEDS: IBUPROFEN 600 MG TAB PO PRN (20:24)
[2023-09-16] MEDS: SENNOSIDES-DOCUSATE SODIUM 1 EACH TAB PO SCH (20:25)
[2023-09-16] MEDS: Acetaminophen-Codeine 300-30mg TAB PO PRN (21:05)
[2023-09-17] MEDS: IBUPROFEN 600 MG TAB PO PRN ×4 (01:25→23:47)
[2023-09-17] MEDS: LACTATED RINGERS 1,000 ML IV SCH (01:53)
[2023-09-17] MEDS: Acetaminophen-Codeine 300-30mg TAB PO PRN ×3 (04:22→20:13)
--- NOTE | 2023-09-17 06:01 | XR ---
EXAMINATION TYPE: XR Hip Bilateral Complete DATE OF EXAM: 09/16/2023 CLINICAL HISTORY: Bilateral hip pain TECHNIQUE: AP and frogleg views of the bilateral hips are obtained. COMPARISON: None. FINDINGS: There is no acute fracture/dislocation evident in either hip. The joint space in bilatera l hips appears symmetric and within normal limits. The femoral head shapes are maintained bilaterally . The overlying soft tissue appears unremarkable bilaterally. IMPRESSION: Unremarkable study.
[2023-09-17 07:31] LABS: Anisocytosis Slight; Basophils % (A) 0 %; Eosinophils # (A) 0.1 k/uL (0-0.7); Eosinophils % (A) 1 %; HCT 34.9 % (34.0-46.0); HGB 11.7 gm/dL (11.4-16.0); Lymphocytes # (A) 1.7 k/uL (1.0-4.8); Lymphocytes % (A) 18 %; MCH 29.2 pg (25.0-35.0); MCHC 33.4 g/dL (31.0-37.0); MCV 87.5 fL (80.0-100.0); Mean Platelet Volume 11.4; Monocytes # (A) 0.5 k/uL (0-1.0); Monocytes % (A) 6 %; Neutrophils # (A) 6.7 k/uL (1.3-7.7); Neutrophils % (A) 73 %; Platelet Count 149 k/uL (150-450); RBC 3.99 m/uL (3.80-5.40); RDW 16.2 % (11.5-15.5); WBC 9.2 k/uL (3.8-10.6)
[2023-09-17] MEDS: SENNOSIDES-DOCUSATE SODIUM 1 EACH TAB PO SCH ×2 (07:57→20:13)
[2023-09-18] MEDS: Acetaminophen-Codeine 300-30mg TAB PO PRN ×3 (02:33→16:40)
[2023-09-18] MEDS: IBUPROFEN 600 MG TAB PO PRN ×3 (05:59→19:32)
--- NOTE | 2023-09-18 07:39 | P.PROBDLV ---
Vaginal Delivery Note - . Vaginal Delivery Note: 37 year old presents at 40 weeks 5 days for induction of labor. Her cervix is 1-2/60/-2. She is not marybeth. heart tones 135 with moderate variability and reactive. Pitocin augmentation was started and amniotomy performed at 8:20 AM, clear fluid noted. When she was uncomfortable she did get an epidural. heart tones remained category 1 and responded she measures 1 and went to category 2. Her cervix was completely dilated at 1446. She pushed, delivered a viable male over intact perineum under epidural anesthesia at 1508. Head delivered OA, anterior shoulder delivered gentle downward guidance followed by posterior shoulder and rest of body. Nose and mouth bulb suctioned, cord clamped and cut, infant placed mother's abdomen. Apgars 8, 9, weight 8 lbs. 8 oz. Placenta delivered spontaneously, intact with three-vessel cord at 1 511. Vagina, cervix, and perineum were inspected. No lacerations noted. Estimated blood loss 300 mL. Mother and baby in stable condition.
[2023-09-18] MEDS: SENNOSIDES-DOCUSATE SODIUM 1 EACH TAB PO SCH ×2 (08:55→19:32)
[2023-09-18] MEDS: ACETAMINOPHEN TAB 325 MG TAB PO PRN (23:37)
[2023-09-19 01:23] VITALS: TEMP 98.1
[2023-09-19] MEDS: IBUPROFEN 600 MG TAB PO PRN ×2 (04:45→11:39)
[2023-09-19] MEDS: ACETAMINOPHEN TAB 325 MG TAB PO PRN (09:12)
--- NOTE | 2023-09-19 09:12 | P.PNOBGVD ---
Subjective - Subjective Principal diagnosis: S/P NVD PPD #1 Interval history: Reason seen and examined. Patient states is very difficult for her to walk. Her right hip is in quite a bit of discomfort. An x-ray shows at this hip is not broken though the patient had thought that in the first place. I know that she was pushing against her leg and pulling it back further than it usually goes for some time during delivery last night. Observing her walk she is in some pain but able to remove her right and left legs. I have given her some extra pain medication and encouraged her to continue to move and use that legs so the pain can resolved. Patient reports: Reports appetite normal, Reports voiding normally : doing well Objective - Latest Vital Signs Latest vital signs: Vital Signs Temp Pulse Resp BP 09/19/23 00:00 98.1 F 65 18 104/67 09/18/23 16:00 97.7 F 70 20 110/70 09/18/23 09:45 98.2 F 71 20 120/66 Intake and Output 09/18/23 09/19/23 09/19/23 22:59 06:59 14:59 Intake Total 200 Balance 200 Intake: Oral 200 Other: # Voids 1 1 - Exam Lungs: bilateral: normal Chest: Normal S1, Normal S2 Extremities: Present: normal, tenderness (right groin) Abdomen: Present: normal appearance, soft Uterus: Present: normal, firm Assessment and Plan (1) Encounter for induction of labor Current Visit: Yes Status: Resolved Code(s): Z34.90 - ENCNTR FOR SUPRVSN OF NORMAL , UNSP, UNSP TRIMESTER SNOMED Code(s): 752849965 (2) Post-term , 40-42 weeks of gestation Current Visit: Yes Status: Resolved Code(s): O48.0 - POST-TERM SNOMED Code(s): 81192866596873 (3) Status post normal vaginal delivery Current Visit: Yes Status: Acute Code(s): DNJ7938 - SNOMED Code(s): 215319164 (4) Pain in right leg Current Visit: Yes Status: Acute Code(s): M79.604 - PAIN IN RIGHT LEG SNOMED Code(s): 158906516 Plan: 1. Increase ambulation 2. Motrin and Tylenol 3
--- NOTE | 2023-09-19 09:14 | P.PNOBGVD ---
Subjective - Subjective Principal diagnosis: Status post normal vaginal delivery day 2 Interval history: Patient continues to have pain in the right leg I will add a an abdominal binder to her regimen to see if that can help stabilize her hip she is walking. Seems to be more painful when she tries to lift the right leg, which makes sense for her right groin and those muscles were the ones strained. Patient reports: Reports appetite normal, Reports voiding normally, Reports pain well controlled [place]: doing well Objective - Latest Vital Signs Latest vital signs: Vital Signs Temp Pulse Resp BP 09/19/23 00:00 98.1 F 65 18 104/67 09/18/23 16:00 97.7 F 70 20 110/70 09/18/23 09:45 98.2 F 71 20 120/66 Intake and Output 09/18/23 09/19/23 09/19/23 22:59 06:59 14:59 Intake Total 200 Balance 200 Intake: Oral 200 Other: # Voids 1 1 - Exam Lungs: bilateral: normal Chest: Normal S1, Normal S2 Extremities: Present: normal Abdomen: Present: normal appearance, soft Uterus: Present: normal, firm Assessment and Plan (1) Encounter for induction of labor Current Visit: Yes Status: Resolved Code(s): Z34.90 - ENCNTR FOR SUPRVSN OF NORMAL , UNSP, UNSP TRIMESTER SNOMED Code(s): 105911512 (2) Post-term , 40-42 weeks of gestation Current Visit: Yes Status: Resolved Code(s): O48.0 - POST-TERM SNOMED Code(s): 80173310676272 (3) Status post normal vaginal delivery Current Visit: Yes Status: Acute Code(s): SKA4782 - SNOMED Code(s): 296686571 (4) Pain in right leg Current Visit: Yes Status: Acute Code(s): M79.604 - PAIN IN RIGHT LEG SNOMED Code(s): 601133419 Plan: 1., Binder and continue pain meds
--- NOTE | 2023-09-19 09:15 | P.DS ---
Providers Date of admission: 09/16/23 06:08 Expected date of discharge: 09/19/23 Attending physician: May Shannon Primary care physician: Stated None - Discharge Diagnosis(es) (1) Encounter for induction of labor Current Visit: Yes Status: Resolved (2) Post-term , 40-42 weeks of gestation Current Visit: Yes Status: Resolved (3) Status post normal vaginal delivery Current Visit: Yes Status: Acute (4) Pain in right leg Current Visit: Yes Status: Acute Hospital Course: Patient presented for induction of labor. She underwent a normal vaginal delivery. course was complicated by right groin and hip pain which limited mobility. She is doing better now with the abdominal binder and Motrin. Patient would be discharged home day #3 in stable condition to follow-up with me in 6 weeks. Plan - Discharge Summary New Discharge Prescriptions: New Ibuprofen [Motrin] 600 mg PO Q6HR PRN #30 tab PRN Reason: Mild Pain (Scale 1 To 3) No Action Vit No.179/Iron/Folic [ Tablet] 1 tab PO DAILY Discharge Medication List Vit No.179/Iron/Folic [ Tablet] 1 tab PO DAILY 09/16/23 [History] Ibuprofen [Motrin] 600 mg PO Q6HR PRN #30 tab 09/19/23 [Rx] Follow up Appointment(s)/Referral(s): May Shannon DO [Doctor of Osteopathic Medicine] - 10/27/23 10:45 am Discharge Disposition: HOME SELF-CARE
[2023-09-19 09:55] VITALS: BP 97/61; PULSE 79; RESP 16
== END 2023-09-19 13:27 | disposition home or self-care (01) | DRG 560 ==
LOC: 4FBP 06:08
PROVIDERS: ADMIT Obstetrics & Gynecology; ATTEND Obstetrics & Gynecology
PROC: 10E0XZZ Delivery of Products of Conception, External Approach (ICD-10-PCS; principal; 2023-09-16)
DX: O48.0 Post-term pregnancy (principal); Z37.0 Single live birth; Z3A.40 40 weeks gestation of pregnancy
CPT/HCPCS: 73521; 85025; 86850; 86900; 86901

== ENCOUNTER → 2023-12-13 | Outpatient (CLI) | payer OTHER ==
--- NOTE | 2023-12-13 19:30 | XR ---
EXAMINATION TYPE: XR cervical spine comp DATE OF EXAM: 12/13/2023 COMPARISON: 07/23/2022 HISTORY: Neck pain chronic TECHNIQUE: 5 view cervical spine FINDINGS: Prevertebral space is normal. Posterior spinal lamellar line is intact. Foramen are widely patent. Disc heights are preserved. Vertebral body heights are preserved. Submental vertex view of th e odontoid appears normal IMPRESSION: 1. Unremarkable cervical spine
--- NOTE | 2023-12-13 19:39 | XR ---
EXAMINATION TYPE: XR abdomen acute w cxr DATE OF EXAM: 12/13/2023 COMPARISON: None HISTORY: Lower abdominal pain TECHNIQUE: Acute abdominal series is performed with upright and supine views of the abdomen and suppl emented with chest FINDINGS: Heart size is normal. Pulmonary vasculature is normal. Lungs are clear Normal colonic bowel gas is present. No mass effect is evident. Psoas margins are normal. IUD is with in the midline. Follow up exams can be performed as clinically indicated IMPRESSION: 1. Unremarkable acute abdominal series.
== END | disposition home or self-care (01) ==
LOC: RADXRMAIN 14:31
PROVIDERS: ATTEND Family Medicine
DX: M54.2 Cervicalgia (principal); R10.30 Lower abdominal pain, unspecified; G89.29 Other chronic pain
CPT/HCPCS: 72050; 74022

== ENCOUNTER → 2023-12-16 | Outpatient (CLI) | payer OTHER ==
--- NOTE | 2023-12-16 15:05 | US ---
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 2.0 X 1.5 x 1.0 cm, mid mid, mixed cystic and solid, hypoechoic nodule, which is wider than tall , with smooth margins, without echogenic foci. Prior size: No prior LEFT: # of nodules measured on left: 0 ISTHMUS: # of nodules measured in the isthmus: 0 Bilateral neck scanned, no evidence of lymphadenopathy. IMPRESSION: Mildly Suspicious: FNA if ? 2.5 cm; Follow if ? 1.5 cm at 1, 3, and 7 y 2017 ACR TI-RADS LEVEL: TR3 *Highest TI-RADS level nodule reported
--- NOTE | 2023-12-16 15:18 | US ---
EXAMINATION TYPE: US abdomen complete DATE OF EXAM: 12/16/2023 COMPARISON: NONE CLINICAL INDICATION: Female, 38 years old with history of R82.90 ABN URINE R10.9 ABD PA R10.13; Abdo hasmukh pain. TECHNIQUE: Multiple sonographic images of the abdomen are obtained. FINDINGS: EXAM MEASUREMENTS: Liver Length: 17.6 cm Gallbladder Wall: 0.20 cm CBD: 0.42 cm Spleen: 10.7 cm Right Kidney: 12.5 x 5.9 x 4.8 cm Left Kidney: 13.0 x 5.1 x 4.3 cm HOTEL VALET ATTENDANT NOTES: Exam is limited due to gas. Pancreas: Limited visibility of tail. Liver: Appears heterogeneous. Measures upper limits. Gallbladder: Appears wnl Evidence for sonographic Porras's sign: No CBD: Appears wnl Spleen: Appears wnl Right Kidney: Slightly enlarged. No hydronephrosis or masses seen Left Kidney: Enlarged. No hydronephrosis or masses seen Upper IVC: Appears wnl Abd Aorta: Appears wnl IMPRESSION: Hepatic steatosis. Borderline hepatomegaly.
== END | disposition home or self-care (01) ==
LOC: RADUSWWP 13:23
PROVIDERS: ATTEND Family Medicine
DX: E04.1 Nontoxic single thyroid nodule (principal); K76.0 Fatty (change of) liver, not elsewhere classified; R16.0 Hepatomegaly, not elsewhere classified; J39.2 Other diseases of pharynx; R82.90 Unspecified abnormal findings in urine
CPT/HCPCS: 76536; 76700

== ENCOUNTER 2024-01-27 17:31 | Emergency (ER) | payer OTHER ==
[2024-01-27 18:14] VITALS: TEMP 97.8
--- NOTE | 2024-01-27 19:29 | ED ---
Abdominal Pain HPI - General Chief Complaint: Abdominal Pain Stated Complaint: Abd Pain Time Seen by Provider: 01/27/24 19:00 Source: patient, RN notes reviewed Mode of arrival: ambulatory Limitations: no limitations - History of Present Illness Initial Comments: 38-year-old female with no significant past medical history presenting with pelvic pain x 4 days. Describes the pain as sharp and radiates around to bilateral flanks. Denies nausea, vomiting, fever, dysuria, urinary frequency, urinary urgency, hematuria. States she has had IUD for 3 months, reports gave to child 4 months ago. She has not had a menstrual period since before the of her child. She is tolerating orals well. Last bowel movement was this morning and was normal. She is concerned that IUD may be out of place. - Related Data Home Medications Medication Instructions Recorded Confirmed Vit No.179/Iron/Folic 1 tab PO DAILY 09/16/23 09/16/23 [ Tablet] Previous Rx's Medication Instructions Recorded Ibuprofen [Motrin] 600 mg PO Q6HR PRN #30 tab 09/19/23 Allergies Allergy/AdvReac Type Severity Reaction Status Date / Time No Known Allergies Allergy Verified 03/12/23 13:01 Review of Systems ROS Statement: Those systems with pertinent positive or pertinent negative responses have been documented in the HPI. ROS Other: All systems not noted in ROS Statement are negative. Past Medical History Past Medical History: No Reported History Additional Past Medical History / Comment(s): IBS. Obstetric history: She's had 4 previous vaginal deliveries. Blood type is O+, antibodies negative, rubella immune, RPR nonreactive, hepatitis B negative, hepatitis C negative, toxoplasmosis negative. History of Any Multi-Drug Resistant Organisms: None Reported Past Surgical History: No Surgical Hx Reported Past Psychological History: No Psychological Hx Reported Smoking Status: Never smoker Past Alcohol Use History: None Reported Past Drug Use History: None Reported - Past Family History Father History Unknown: Yes General Exam Limitations: no limitations General appearance: alert, in no apparent distress Respiratory exam: Present: normal lung sounds bilaterally. Absent: respiratory distress, wheezes, rales, rhonchi, stridor Cardiovascular Exam: Present: regular rate, normal rhythm, normal heart sounds. Absent: systolic murmur, diastolic murmur, rubs, gallop, clicks GI/Abdominal exam: Present: soft, normal bowel sounds. Absent: distended, tende rness, guarding, rebound, rigid Back exam: Absent: CVA tenderness (R), CVA tenderness (L) Neurological exam: Present: alert, oriented X3 Psychiatric exam: Present: normal affect, normal mood Skin exam: Present: warm, dry, intact, normal color. Absent: rash Course Vital Signs 01/27/24 17:48 Temperature 97.8 F Pulse Rate 70 Respiratory 18 Rate Blood Pressure 116/80 O2 Sat by Pulse 100 Oximetry Medical Decision Making - Medical Decision Making Was pt. sent in by a medical professional or institution (, PA, JUNK DEALER, urgent care, hospital, or [facility]...) When possible be specific @ -No Did you speak to anyone other than the patient for history (EMS, parent, family, police, friend...)? What history was obtained from this source @ -Patient's translated for patient Did you review nursing and triage notes (agree or disagree)? Why? @ -I reviewed and agree with nursing and triage notes Were old charts reviewed (outside hosp., previous admission, EMS record, old E KG, old radiological studies, urgent care reports/EKG's, [facility] records)? Report findings @ -No old charts were reviewed Differential Diagnosis (chest pain, altered mental status, abdominal pain women, abdominal pain men, vaginal bleeding, weakness, fever, dyspnea, syncope, headache, dizziness, GI bleed, back pain, seizure, CVA, palpatations, mental health, musculoskeletal)? @ -Differential Abdominal Pain Women: Appendicitis, Cholecystitis, diverticulosis, ischemic bowel, pancreatitis, h epatitis, UTI, gastroenteritis, AAA, incarcerated hernia, bowel obstruction, constipation, inflammatory bowel, hepatitis, peptic ulcer disease, splenic infarction, perforated viscus, vulvitis, ovarian torsion, PID, kidney stone, placenta abruption, this is not meant to be an all-inclusive list EKG interpreted by me (3pts min.). @ -None X-rays interpreted by me (1pt min.). @ -None done CT interpreted by me (1pt min.). @ -None done U/S interpreted by me (1pt. min.). @ -Pelvic ultrasound was negative for acute abnormality What testing was considered but not performed or refused? (CT, X-rays, U/S, labs)? Why? @ -CT scan of abdomen/pelvis not performed due to patient non tender to palpation on examination, all vitals, urine, and lab work unremarkable What meds were considered but not given or refused? Why? @ -None Did you discuss the management of the patient with other professionals (robbie mobley i.e. , PA, JUNK DEALER, lab, RT, psych nurse, social work lecturer, feed research technician, teacher, regulatory compliance officer, supportive employment case manager)? Give summary @ -No Was smoking cessation discussed for >3mins.? @ -No Was critical care preformed (if so, how long)? @ -No Were there social determinants of health that impacted care today? How? (Homelessness, low income, unemployed, alcoholism, drug addiction, transportation, low edu. Level, literacy, decrease access to med. care, usp, rehab)? @ -No Was there de-escalation of care discussed even if they declined (Discuss DNR or withdrawal of care, Hospice)? DNR status @ -No What co-morbidities impacted this encounter? (DM, HTN, Smoking, COPD, CAD, Cancer, CVA, ARF, Chemo, Hep., AIDS, mental health diagnosis, sleep apnea, morbid obesity)? @ -None Was patient admitted / discharged? Hospital course, mention meds given and route, prescriptions, significant lab abnormalities, going to OR and other pertinent info. @ -Patient was discharged. Patient was seen and evaluated for pelvic pain x 4 days. There are no red flag symptoms present. Vitals signs and physical examination is unremarkable. Pelvic ultrasound performed and was negative for acute process, IUD was in place. Lab work and urine unremarkable. Discussed there does not appear to be emergent cause of pelvic pain today. Advise close follow-up with electrical logging engineer and PCP. Strict return/alarm symptoms discussed w ith patient in detail and patient shows understanding and agrees to plan. Patient discharged in stable condition. Case discussed with Dr. Tovar Undiagnosed new problem with uncertain prognosis? @ -No Drug Therapy requiring intensive monitoring for toxicity (Heparin, Nitro, Insulin, Cardizem)? @ -No Were any procedures done? @ -No Diagnosis/symptom? @ -Pelvic pain Acute, or Chronic, or Acute on Chronic? @ -Acute Uncomplicated (without systemic symptoms) or Complicated (systemic symptoms)? @ -Uncomplicated Side effects of treatment? @ -No Exacerbation, Progression, or Severe Exacerbation? @ -No Poses a threat to life or bodily function? How? (Chest pain, [place], [place], pneumonia, PE, COPD, DKA, ARF, appy, cholecystitis, CVA, Diverticulitis, Homicidal, Suicidal, threat to staff... and all critical care pts) @ -No - Lab Data Result diagrams: 01/27/24 20:02 01/27/24 20:02 Lab Results 01/27/24 01/27/24 01/27/24 Range/Units 20:02 20:02 20:02 WBC 4.8 (3.8-10.6) k/uL RBC 4.36 (3.80-5.40) m/uL Hgb 13.4 (11.4-16.0) gm/dL Hct 40.3 (34.0-46.0) % MCV 92.3 (80.0-100.0) fL MCH 30.7 (25.0-35.0) pg MCHC 33.3 (31.0-37.0) g/dL RDW 13.4 (11.5-15.5) % Plt Count 224 (150-450) k/uL MPV 9.5 Neutrophils % 34 % Lymphocytes % 52 % Monocytes % 7 % Eosinophils % 3 % Basophils % 1 % Neutrophils # 1.6 (1.3-7.7) k/uL Lymphocytes # 2.5 (1.0-4.8) k/uL Monocytes # 0.4 (0-1.0) k/uL Eosinophils # 0.2 (0-0.7) k/uL Basophils # 0.1 (0-0.2) k/uL Sodium 140 (137-145) mmol/L Potassium 4.0 (3.5-5.1) mmol/L Chloride 107 (98-107) mmol/L Carbon Dioxide 28 (22-30) mmol/L Anion Gap 5 mmol/L BUN 12 (7-17) mg/dL Creatinine 0.59 (0.52-1.04) mg/dL Est GFR (CKD-EPI)AfAm >90 (>60 ml/min/1.73 sqM) Est GFR (CKD-EPI)NonAf >90 (>60 ml/min/1.73 sqM) Glucose 97 (74-99) mg/dL Plasma Lactic Acid Claudy (0.7-2.0) mmol/L Calcium 9.4 (8.4-10.2) mg/dL Total Bilirubin 0.2 (0.2-1.3) mg/dL AST 27 (14-36) U/L ALT 35 H (4-34) U/L Alkaline Phosphatase 107 (38-126) U/L Total Protein 7.1 (6.3-8.2) g/dL Albumin 4.2 (3.5-5.0) g/dL Urine Color Urine Appearance (Clear) Urine pH (5.0-8.0) Ur Specific [place] (1.001-1.035) Urine Protein (Negative) Urine Glucose (UA) (Negative) Urine Ketones (Negative) Urine Blood (Negative) Urine Nitrite (Negative) Urine Bilirubin (Negative) Urine Urobilinogen (<2.0) mg/dL Ur Leukocyte Esterase (Negative) Urine HCG, Qual Not Detected (Not Detectd) 01/27/24 01/27/24 Range/Units 20:02 20:02 WBC (3.8-10.6) k/uL RBC (3.80-5.40) m/uL Hgb (11.4-16.0) gm/dL Hct (34.0-46.0) % MCV (80.0-100.0) fL MCH (25.0-35.0) pg MCHC (31.0-37.0) g/dL RDW (11.5-15.5) % Plt Count (150-450) k/uL MPV Neutrophils % % Lymphocytes % % Monocytes % % Eosinophils % % Basophils % % Neutrophils # (1.3-7.7) k/uL Lymphocytes # (1.0-4.8) k/uL Monocytes # (0-1.0) k/uL Eosinophils # (0-0.7) k/uL Basophils # (0-0.2) k/uL Sodium (137-145) mmol/L Potassium (3.5-5.1) mmol/L Chloride (98-107) mmol/L Carbon Dioxide (22-30) mmol/L Anion Gap mmol/L BUN (7-17) mg/dL Creatinine (0.52-1.04) mg/dL Est GFR (CKD-EPI)AfAm (>60 ml/min/1.73 sqM) Est GFR (CKD-EPI)NonAf (>60 ml/min/1.73 sqM) Glucose (74-99) mg/dL Plasma Lactic Acid Claudy 1.0 (0.7-2.0) mmol/L Calcium (8.4-10.2) mg/dL Total Bilirubin (0.2-1.3) mg/dL AST (14-36) U/L ALT (4-34) U/L Alkaline Phosphatase (38-126) U/L Total Protein (6.3-8.2) g/dL Albumin (3.5-5.0) g/dL Urine Color Colorless Urine Appearance Clear (Clear) Urine pH 7.0 (5.0-8.0) Ur Specific [place] 1.009 (1.001-1.035) Urine Protein Negative (Negative) Urine Glucose (UA) Negative (Negative) Urine Ketones Negative (Negative) Urine Blood Negative (Negative) Urine Nitrite Negative (Negative) Urine Bilirubin Negative (Negative) Urine Urobilinogen <2.0 (<2.0) mg/dL Ur Leukocyte Esterase Negative (Negative) Urine HCG, Qual (Not Detectd) Disposition Clinical Impression: Pelvic pain Disposition: HOME SELF-CARE Condition: Stable Additional Instructions: Please return to the Emergency Department if symptoms worsen or any other concerns. Is patient prescribed a controlled substance at d/c from ED?: No Referrals: Renetta Woodson MD [Primary Care Provider] - 1-2 days Time of Disposition: 20:51
--- NOTE | 2024-01-27 19:59 | US ---
EXAMINATION TYPE: US pelvic complete DATE OF EXAM: 01/27/2024 COMPARISON: 09/02/22 CLINICAL INDICATION: Female, 38 years old with history of pelvic pain; Pelvic pain x 4 days. . 4 months . TECHNIQUE: . Transabdominal sonographic images of the pelvis were acquired. Date of LMP: Hasn't had a period since being EXAM MEASUREMENTS: Uterus: 10.9 x 5.6 x 4.1 cm Endometrial Stripe: 0.6 cm Right Ovary: 3.4 x 2.1 x 1.3 cm Left Ovary: 4.0 x 2.9 x 1.3 cm 1. Uterus: Anteverted wnl 2. Endometrium: wnl. IUD appears to be in place 3. Right Ovary: multiple follicles seen 4. Left Ovary: multiple follicles seen Spectral, color and waveform doppler imaging shows good arterial and venous flow within the ovaries ; there is no evidence for ovarian torsion. 5. Bilateral Adnexa: wnl 6. Posterior cul-de-sac: wnl IMPRESSION: 1. No significant amount. 2. IUD present
[2024-01-27 20:15] LABS: Basophils # (A) 0.1 k/uL (0-0.2); Basophils % (A) 1 %; Eosinophils # (A) 0.2 k/uL (0-0.7); Eosinophils % (A) 3 %; HCT 40.3 % (34.0-46.0); HGB 13.4 gm/dL (11.4-16.0); Lymphocytes # (A) 2.5 k/uL (1.0-4.8); Lymphocytes % (A) 52 %; MCH 30.7 pg (25.0-35.0); MCHC 33.3 g/dL (31.0-37.0); MCV 92.3 fL (80.0-100.0); Mean Platelet Volume 9.5; Monocytes # (A) 0.4 k/uL (0-1.0); Monocytes % (A) 7 %; Neutrophils # (A) 1.6 k/uL (1.3-7.7); Neutrophils % (A) 34 %; Platelet Count 224 k/uL (150-450); RBC 4.36 m/uL (3.80-5.40); RDW 13.4 % (11.5-15.5); WBC 4.8 k/uL (3.8-10.6)
[2024-01-27 20:17] LABS: Appearance,Urine Clear (Clear); Bilirubin,Urine Negative (Negative); Blood,Urine Negative (Negative); Color,Urine Colorless; Glucose,Urine (UA) Negative (Negative); Ketones,Urine Negative (Negative); Leukocyte Esterase,Urine Negative (Negative); Nitrite,Urine Negative (Negative); Protein,Urine Negative (Negative); Specific Gravity,Urine 1.009 (1.001-1.035); Urobilinogen,Urine <2.0 mg/dL (<2.0)
[2024-01-27 20:29] LABS: African American GFR (CKD) >90 (>60 ml/min/1.73 sqM); Anion Gap 5 mmol/L; Blood Urea Nitrogen 12 mg/dL (7-17); Calcium 9.4 mg/dL (8.4-10.2); Carbon Dioxide 28 mmol/L (22-30); Chloride 107 mmol/L (98-107); Glucose 97 mg/dL (74-99); Non-African American GFR(CKD) >90 (>60 ml/min/1.73 sqM); Sodium 140 mmol/L (137-145); Total Protein 7.1 g/dL (6.3-8.2)
[2024-01-27 20:30] LABS: ALT 35 U/L (4-34); AST 27 U/L (14-36); Albumin 4.2 g/dL (3.5-5.0); Alkaline Phosphatase 107 U/L (38-126); Total Bilirubin 0.2 mg/dL (0.2-1.3)
[2024-01-27 21:12] VITALS: BP 124/81; PULSE 64; RESP 16
== END 2024-01-27 21:07 | disposition home or self-care (01) ==
LOC: EC 17:31
DX: R10.2 Pelvic and perineal pain (principal)
CPT/HCPCS: 36415; 76856; 80053; 81003; 81025; 83605; 85025; 93975; 99284

== ENCOUNTER → 2024-05-12 | Outpatient (CLI) | payer OTHER ==
--- NOTE | 2024-05-12 11:40 | MR ---
EXAMINATION TYPE: MR brain wo/w con DATE OF EXAM: 05/12/2024 11:05 AM CLINICAL INDICATION: Female, 38 years old with history of H53.9,R51.9 HEADACHE, UNSPECIFIED; PHH, Hea daches in back of head, rt side hearing loss COMPARISON: CT same day TECHNIQUE: Multi planar, multi sequence imaging was performed through the brain including: T1, T2, In version recovery, susceptibility weighted imaging and gradient echo imaging and Diffusion weighted im aging. The patient was then given intravenous contrast and multi planar, T1 fat-saturation images wer e obtained. IV Contrast: 7 cc Gadavist FINDINGS: No internal auditory canal abnormality to correlate patient's hearing loss. Trace amount hi gh T2 signal seen around the right middle ear ossicles correlating on CT same day. The rader-white junctions, ventricular system, basal cisterns appear unremarkable. Diffusion-weighted imaging shows no evidence of restricted diffusion to suggest acute/subacute infarct. Intracranial ar terial flow voids are maintained. Midline structures show no abnormality. The susceptibility weighted images do not reveal any evidence for micro-hemorrhage. After administration of gadolinium, no abnor mal enhancement is seen. The bone marrow signal is within normal limits. Paranasal sinuses and mastoid air cells: No significant paranasal sinus disease. Visualized orbits: Orbital contents are intact. IMPRESSION: 1. Trace amount of fluid around the right ossicles when correlating with CT same day.. 2. No evidence of intracranial mass, acute/subacute infarct, or abnormal enhancement.
== END | disposition home or self-care (01) ==
LOC: RADMRIMAIN 10:07
PROVIDERS: ATTEND Family Medicine
DX: H53.9 Unspecified visual disturbance (principal); R51.9 Headache, unspecified; H91.91 Unspecified hearing loss, right ear
CPT/HCPCS: 70553

== ENCOUNTER → 2024-05-12 | Outpatient (CLI) | payer OTHER ==
--- NOTE | 2024-05-12 11:34 | CT ---
EXAMINATION TYPE: CT iac wo con DATE OF EXAM: 05/12/2024 COMPARISON: None HISTORY: Conductive hearing loss RT ear CT DLP: 198mGycm Automated exposure control for dose reduction was used. FINDINGS: The external auditory canals are patent bilaterally. Mastoid air cells show no extensive right-sided soft tissue opacification. The middle ear ossicles ar e symmetric and unremarkable. There is no evidence of suspicious surrounding soft tissue density to suggest cholesteatoma. The scutum is preserved bilaterally. The cochlea and the semicircular canals are symmetric and unrem arkable. Vestibular aqueduct and internal carotid canal appear unremarkable. Temporomandibular join ts are maintained bilaterally. IMPRESSION: 1. Extensive right-sided mastoiditis.
== END | disposition home or self-care (01) ==
LOC: RADCTMAIN 10:13
PROVIDERS: ATTEND Otolaryngology Otology & Neurotology
DX: H70.91 Unspecified mastoiditis, right ear (principal)
CPT/HCPCS: 70480; 70553

== ENCOUNTER 2024-10-08 16:49 | Emergency (ER) | payer OTHER ==
[2024-10-08 17:57] VITALS: TEMP 98.4
--- NOTE | 2024-10-08 18:28 | ED ---
ENT HPI - General Chief complaint: ENT Stated complaint: throat pain Time Seen by Provider: 10/08/24 18:03 Source: patient, RN notes reviewed Mode of arrival: ambulatory Limitations: language barrier - History of Present Illness Initial comments: This is a 39-year-old female who presents to the emergency department for a sore throat. States that it started 3 days ago. Pain is described as a burning sensation. She does have a history of a thyroid nodule on the right that she has been dealing with for several months now and is unsure if that may be contributing to her symptoms. Reports possible fevers. She is still able to swallow but states that it is painful. Denies any difficulty breathing. Patient primarily speaks Khmer and the balance bridge inspector was used when obtaining history. MD complaint: sore throat - Related Data Home Medications Medication Instructions Recorded Confirmed Aspirin 325 mg PO DAILY PRN 02/04/24 02/04/24 Ibuprofen [Motrin] 400 mg PO Q6HR PRN 02/04/24 02/04/24 Previous Rx's Medication Instructions Recorded Amoxic-Pot Clav 875-125Mg 1 tab PO Q12HR 7 Days #14 tab 10/08/24 [Augmentin 875-125] Allergies Allergy/AdvReac Type Severity Reaction Status Date / Time No Known Allergies Allergy Verified 10/08/24 17:50 Review of Systems ROS Statement: Those systems with pertinent positive or pertinent negative responses have been documented in the HPI. ROS Other: All systems not noted in ROS Statement are negative. Past Medical History Past Medical History: No Reported History Additional Past Medical History / Comment(s): IBS, RUQ pain. R ear drum problem History of Any Multi-Drug Resistant Organisms: None Reported Past Surgical History: Section Past Anesthesia/Blood Transfusion Reactions: No Reported Reaction Past Psychological History: No Psychological Hx Reported Smoking Status: Never smoker Past Alcohol Use History: None Reported Past Drug Use History: None Reported - Past Family History Father History Unknown: Yes General Exam Limitations: no limitations General appearance: alert, in no apparent distress Head exam: Present: atraumatic, normocephalic, normal inspection ENT exam: Present: other (Posterior pharyngeal erythema. No tonsillar hypertrophy or exudates) Respiratory exam: Present: normal lung sounds bilaterally. Absent: respiratory distress, wheezes, rales, rhonchi, stridor Cardiovascular Exam: Present: regular rate, normal rhythm, normal heart sounds. Absent: systolic murmur, diastolic murmur, rubs, gallop, clicks Neurological exam: Present: alert, oriented X3, CN II-XII intact Psychiatric exam: Present: normal affect, normal mood Skin exam: Present: warm, dry, intact, normal color. Absent: rash Course Vital Signs 10/08/24 10/08/24 17:50 21:19 Temperature 98.4 F Pulse Rate 75 89 Respiratory 18 20 Rate Blood Pressure 123/84 124/77 O2 Sat by Pulse 99 99 Oximetry Medical Decision Making - Medical Decision Making This is a 39-year-old female who presents to the emergency department for a sore throat. Was pt. sent in by a medical professional or institution? @ -No Did you speak to anyone other than the patient for history? @ -No Did you review nursing and triage notes? @ -Yes, and I agree, it is accurate with regards to the patient's symptoms. Were old charts reviewed? @ -No Differential Diagnosis? @ -Differential Sore Throat: Strep pharyngitis, herpes zoster, COVID, influenza, GERD, allergic rhinitis, mononucleosis, this is not meant to be an all-inclusive list. EKG interpreted by me (3pts min.)? @ -Not obtained X-rays interpreted by me (1pt min.)? @ -Not obtained CT interpreted by me (1pt min.)? @ -Not obtained U/S interpreted by me (1pt. min.)? @ -Ultrasound of the soft tissue neck and thyroid obtained. My interpretation identifies a right-sided thyroid nodule. What testing was considered but not performed? (CT, X-rays, U/S, labs)? Why? @ -None What meds were considered but not given? Why? @ -None Did you discuss the management of the patient with other professionals? @ -No Did you reconcile home meds? @ -No Was smoking cessation discussed for >3mins.? @ -No Was critical care preformed (if so, how long)? @ -No Were there social determinants of health that impacted care today? How? (Homelessness, low income, unemployed, alcoholism, drug addiction, transportation, low edu. Level, literacy, decrease access to med. care, detention, rehab)? @ -No Was there de-escalation of care discussed even if they declined? (Discuss DNR or withdrawal of care, Hospice)? @ -No What co-morbidities impacted this encounter? (DM, HTN, Smoking, COPD, CAD, Cancer, CVA, Hep., AIDS, mental health diagnosis, sleep apnea, morbid obesity)? @ -None Was patient admitted / discharged? @ -Discharged. Rapid strep test negative. Patient has a history of a right- sided thyroid nodule. Ultrasound of the soft tissue neck and thyroid was obtained. However, patient requested to leave before the results had returned. She inquired as to if we could call her with the results. However, given the language barrier this would be very difficult. Advised that if she would like to leave at this time she needs to make sure she follows up with her primary care provider, as the results will also be sent to their office. She expresses understanding and understands that we will not be able to reach her with the results given the language barrier and that she will reach out to her primary care provider for a follow-up appointment. She was given a dose of dexamethasone in the emergency department and a prescription for Augmentin was provided for any potential bacterial component given that the severity of the pain was more of an acute onset. After the results returned she was found to have a moderately suspicious nodule on the right thyroid lobe. Fine-needle aspiration is recommended. This is similar to the ultrasound she had in December 2023. She did choose to leave before results returned, understanding that we would not be able to reach her and will follow-up with her primary care provider. Case discussed with ED attending Dr. Weaver. Undiagnosed new problem with uncertain prognosis? @ -None Drug Therapy requiring intensive monitoring for toxicity (Heparin, Nitro, Insulin, Cardizem)? @ -None Were any procedures done? @ -None Diagnosis/symptom? @ -Pharyngitis, thyroid nodule Acute, or Chronic, or Acute on Chronic? @ -Acute Uncomplicated (without systemic symptoms) or Complicated (systemic symptoms)? @ -Uncomplicated Side effects of treatment? @ -None Exacerbation, Progression, or Severe Exacerbation] @ -Not applicable Poses a threat to life or bodily function? @ -Unlikely - Lab Data Lab Results 10/08/24 Range/Units 18:21 Group A Strep (PCR) NOT DETECTED (Not Detectd) - Radiology Data Radiology results: report reviewed, image reviewed Disposition Clinical Impression: Bacterial pharyngitis, Right thyroid nodule Disposition: HOME SELF-CARE Condition: Undetermined Instructions (If sedation given, give patient instructions): Pharyngitis (ED) Additional Instructions: Return to the emergency department with any new, worsening, or concerning symptoms. Take the antibiotic as prescribed for 7 days. It appears that you have a thyroid nodule on the right side. Discuss further testing with your primary care provider. Follow up with your primary care provider in 1-2 days. Prescriptions: Amoxic-Pot Clav 875-125Mg [Augmentin 875-125] 1 tab PO Q12HR 7 Days #14 tab Is patient prescribed a controlled substance at d/c from ED?: No Referrals: Renetta Woodson MD [Primary Care Provider] - 1-2 days Time of Disposition: 21:09
[2024-10-08] MEDS: AMOXIC-POT CLAV 875-125MG 1 EACH TAB PO STA (21:16)
[2024-10-08] MEDS: dexAMETHasone 2 MG TAB PO STA (21:16)
[2024-10-08 21:22] VITALS: BP 124/77; PULSE 89; RESP 20
--- NOTE | 2024-10-08 22:05 | US ---
EXAMINATION TYPE: US thyroid st tissue head/neck DATE OF EXAM: 10/08/2024 COMPARISON: US 2023 CLINICAL INDICATION: Female, 39 years old with history of Right sided neck pain, hx of nodule; TECHNIQUE: Grayscale and color Doppler imaging of the thyroid gland. FINDINGS: GLAND SIZE: Right Lobe: 4.8 x 1.4 x 1.9 cm Overall Parenchyma: homogeneous Left Lobe: 4.9 x 1.4 x 1.4 cm Overall Parenchyma: homogeneous Isthmus Thickness: 0.3 cm NODULES RIGHT: # of nodules measured on right: 1 1. 1.8 X 0.8 x 1.4 cm, mid lateral, solid or almost completely solid, hypoechoic nodule, which is w ider than tall, with ill-defined margins, without echogenic foci. Prior size: 2.0 x 1.0 x 1.5 cm LEFT: # of nodules measured on left: 0 ISTHMUS: # of nodules measured in the isthmus: 0 Bilateral neck scanned, no evidence of lymphadenopathy. IMPRESSION: 1. Moderately suspicious nodule right lobe thyroid. Fine-needle aspiration recommended. 2017 ACR TI-RADS LEVEL: TR-RADS 4 - Moderately Suspicious: Follow if > 1 cm, FNA if > 1.5 cm TR 4 *Highest TI-RADS level nodule reported [email or web address] [facility], Workstation: [facility], 10/08/2024 10:03 PM
== END 2024-10-08 21:19 | disposition home or self-care (01) ==
LOC: EC 16:49
DX: J02.9 Acute pharyngitis, unspecified (principal)
CPT/HCPCS: 87651; 76536; 99283; J8540